=== PATIENT | female | born 1970 | race African-American/Black ===

== ENCOUNTER 2016-12-14 11:32 | Emergency (ER) | payer OTHER ==
[2016-12-14] MEDS ORDERED: Amoxicillin/Potassium Clav 875 MG TAB ONE (11:55)
[2016-12-14] MEDS ORDERED: HYDROcodone/Acetaminophen 10/325 mg Tablet ONE (11:55)
--- NOTE | 2016-12-14 13:13 | PICIS ---
[facility] EMERGENCY RECORD TRIAGE (TueDec 14, 2016 11:41 EPIE) TRIAGE NOTES: Pt reports congestion and small amounts of coughing 2 weeks ago. Pt reports headache for the last 3 days. (TueDec 14, 2016 11:41 EPIE) PATIENT: NAME: Nevin Box, AGE: 46, GENDER: female, : [place] 1970, TIME OF GREET: TueDec 14, 2016 11:33, PREFERRED LANGUAGE: [place] Citizen, ETHNICITY: Not or , ECODE BILLING MAP: [facility], SSN: [id number], Zip Code: [address], KG WEIGHT: [phone], PHONE: , , , PERSON ID: [id number], PCP: Sarah HERNANDEZ ANNA. (TueDec 14, 2016 11:41 EPIE) COMPLAINT: HEADACHE/NASAL CONGESTION. (TueDec 14, 2016 11:41 EPIE) ADMISSION: URGENCY: 3 Urgent, ADMISSION SOURCE: Home, TRANSPORT: CAR, BED: TRIAGE. (TueDec 14, 2016 11:41 EPIE) TRIAGE SCREENING: Patient denies suicidal ideation, Patient denies presence of domestic violence. (11:43 EPIE) TREATMENTS IN PROGRESS: Treatments given Prehospital: none. (11:43 EPIE) PROVIDERS: TRIAGE NURSE: Marianna Ibrahim RN. (TueDec 14, 2016 11:41 EPIE) VITAL SIGNS: Pulse 76, Resp 20, Temp 97.2, (Oral), O2 Sat 97, on Room Air, Time 12/14/2016 11:38. (11:38 EPIE) BP 210/111, Time 12/14/2016 11:42. (11:42 EPIE) PREVIOUS VISIT ALLERGIES: ciprofloxacin. (TueDec 14, 2016 11:41 EPIE) ciprofloxacin. (11:43 EPIE) KNOWN ALLERGIES ciprofloxacin: Reaction: Emesis CURRENT MEDICATIONS (11:42 EPIE) Norvasc: TABLET : Strength - 10 mg : ORAL Patient Dose: 10 mg Oral once a day. labetalol: TABLET : Strength - 100 mg : ORAL Patient Dose: 100 mg Oral 2 times a day. Advair Diskus: BLISTER, WITH INHALATION DEVICE : Strength - 100 mcg-50 mcg/Dose : INHALATION Patient Dose: Unknown. VITAL SIGNS VITAL SIGNS: Pulse: 76, Resp: 20, Temp: 97.2 (Oral), O2 sat: 97 on Room Air, Time: 12/14/2016 11:38. (11:38 EPIE) BP: 210/111, Time: 12/14/2016 11:42. (11:42 EPIE) BP: 167/76, Pulse: 78, Resp: 20 (Non-Labored), Temp: 97.8 (Oral), Pain: 7, O2 sat: 98 on Room Air, Time: 12/14/2016 12:54. (12:54 EPIE) &a-1R&a+25V*p+0X*n5403C*c202B*c15G*c2P*p-0X&a-25V&a+1R Name: Nevin Box : 1970 F46 MedRec: [id number] AcctNum: [id number] Prepared: TueDec 14, 2016 13:08 by Interface Page 1 of 6 pMD [facility] EMERGENCY RECORD NURSING ASSESSMENT: RESPIRATORY /CHEST (12:30 EPIE) CONSTITUTIONAL: Patient arrives ambulatory, Gait steady, History obtained from patient, Patient appears comfortable, Patient cooperative, Patient alert, Oriented to person, place and time, Skin warm, Skin dry, Skin normal in color, Mucous membranes pink, Mucous membranes moist, Patient is well-groomed, Pt reports congestion and small amounts of coughing 2 weeks ago. Pt reports headache for the last 3 days. PAIN: aching pain, headache, on a scale 0-10 patient rates pain as 8. RESPIRATORY/CHEST: Breath sounds clear, Respiratory assessment findings include respiratory effort easy, Respirations regular, Conversing normally, Neck and chest exam findings include trachea midline, Chest expansion equal, Chest movement symmetrical, Associated with cough, non-productive, no associated fever. ENT: Nasal assessment findings include nose normal to inspection, Sinuses normal, Nasal mucosa normal, Congestion, bilaterally, Mouth and throat assessment findings include mouth inspection normal, Uvula normal, Tonsils normal, Mucous membranes pink, and moist, Able to swallow, Speech normal, Associated with headache. NURSING PROCEDURE: NURSE NOTES (12:54 EPIE) NURSES NOTES: Notes: Pt upset and crying due to congestion. ERMD made aware. Pt to be discharged. MEDICATION ADMINISTRATION SUMMARY Drug Name: Augmentin, Dose Ordered: 875 mg, Route: Oral, Status: Given, Time: 12:05 12/14/2016, Drug Name: HYDROcodone-acetaminophen, Dose Ordered: 10/325 tab(s), Route: Oral, Status: Given, Time: 12:05 12/14/2016, Drug Name: hydrALAZINE injection, Dose Ordered: 20 mg, Route: Intramuscular, Status: Given, Time: 12:04 12/14/2016, Detailed record available in Medication Service section. MEDICATION SERVICE Augmentin: Order: Augmentin (amoxicillin trihydrate/potassium clavulanate) - Dose: 875 mg : Oral Ordered by: Bernabe Estrada MD Entered by: Bernabe Estrada MD TueDec 14, 2016 11:50 , Acknowledged by: Marianna Ibrahim RN TueDec 14, 2016 11:51 Documented as given by: Marianna Ibrahim RN TueDec 14, 2016 12:05 Patient, Medication, Dose, Route and Time verified prior to administration. Amount given: 875MG, Site: Medication administered P.O., Correct patient, time, route, dose and medication confirmed prior to administration, Patient advised of actions and side-effects prior to administration, Allergies confirmed and medications reviewed prior to &a-1R&a+25V*p+0X*g6681M*c202B*c15G*c2P*p-0X&a-25V&a+1R Name: Isauro Nevin D : 1970 F46 MedRec: [id number] AcctNum: [id number] Prepared: TueDec 14, 2016 13:08 by Interface Page 2 of 6 pMD [facility] EMERGENCY RECORD administration. hydrALAZINE injection: Order: hydrALAZINE injection (hydralazine HCl) - Dose: 20 mg : Intramuscular Ordered by: Bernabe Estrada MD Entered by: Bernabe Estrada MD TueDec 14, 2016 11:53 , Acknowledged by: Marianna Ibrahim RN TueDec 14, 2016 11:54 Documented as given by: Marianna Ibrahim RN TueDec 14, 2016 12:04 Patient, Medication, Dose, Route and Time verified prior to administration. IM medication, Amount given: 20MG, Medication administered to right deltoid, Correct patient, time, route, dose and medication confirmed prior to administration, Patient advised of actions and side-effects prior to administration, Allergies confirmed and medications reviewed prior to administration. HYDROcodone-acetaminophen: Order: HYDROcodone-acetaminophen (hydrocodone bitartrate/acetaminophen) - Dose: 10/325 tab(s) : Oral Ordered by: Bernabe Estrada MD Entered by: Bernabe Estrada MD [facility] Dec 14, 2016 11:51 , Acknowledged by: Marianna Ibrahim RN Dec 14, 2016 11:51 Documented as given by: Marianna Ibrahim RN Dec 14, 2016 12:05 Patient, Medication, Dose, Route and Time verified prior to administration. Amount given: 10/325MG, Site: Medication administered P.O., Correct patient, time, route, dose and medication confirmed prior to administration, Patient advised of actions and side-effects prior to administration, Allergies confirmed and medications reviewed prior to administration. HPI URI (12:57 AGRE) CHIEF COMPLAINT: Patient presents for evaluation of sore throat, Patient presents for evaluation of nasal congestion, Patient presents for evaluation of cough. HISTORIAN: History provided by patient, NASAL CONGESTION WITH COUGH FOR 2 WEEKS, WORST X 3 DAYS. NO FEVER OR CHILLS. HAS FRONTAL CLEMENTS SIMILAR TO HER USUAL SINUS CLEMENTS'S. HAS GREEN NASAL DRAINAGE FOR 3 DAYS. NON-PRODUCTIVE COUGH. NO OTHER SYMPTOMS. TAKING ALKASELTAER PLUS AND ZYRTEC AND IT IS NOT HELPING. HX OF SINUSITIS. LOCATION: Symptoms are localized, most severe to BEHIND EYES AND FORE HEAD. QUALITY: Pain is dull in nature, described as aching, described as throbbing. SEVERITY: Maximum severity of symptoms moderate, Currently symptoms are moderate. TIME COURSE: Gradual onset of symptoms, Symptoms are worsening. ASSOCIATED WITH: No associated chest pain, No associated chills, No associated fever, Associated with headache, No associated neck pain, No associated shortness of breath, Denies any other complaints. EXACERBATED BY: Patient's condition exacerbated by nothing. RELIEVED BY: Patient's condition relieved &a-1R&a+25V*p+0X*g8057K*c202B*c15G*c2P*p-0X&a-25V&a+1R Name: Nevin Box : 1970 F46 MedRec: [id number] AcctNum: [id number] Prepared: TueDec 14, 2016 13:08 by Interface Page 3 of 6 pMD [facility] EMERGENCY RECORD by nothing. ROS (12:59 AGRE) CONSTITUTIONAL: Historian denies chills, denies fever, denies lethargy, denies malaise. EYES: Historian denies eye pain, denies eye redness. ENT: Historian denies otalgia, reports rhinorrhea, reports sinus pain, reports sore throat. CARDIOVASCULAR: Historian denies chest pain, denies dyspnea on exertion. RESPIRATORY: Historian reports cough, denies shortness of breath, denies sputum, denies stridor, denies wheezing. GI: Historian denies abdominal pain, denies nausea, denies vomiting. MUSCULOSKELETAL: Historian denies back pain, denies neck pain. SKIN: Negative skin review of systems, Historian denies skin changes, denies skin lesions. NEUROLOGIC: Historian reports headache, denies mental status changes. PSYCHIATRIC: Negative psychiatric review of systems, Historian denies anxiety. PAST MEDICAL HISTORY (11:43 EPIE) MEDICAL HISTORY: Flu vaccine not up to date, Tetanus immunization up to date, Pneumococcal vaccine not up to date, Past medical history includes pulmonary disease, asthma, Past medical history includes history of obesity, Past medical history includes pulmonary disease, pneumonia, , Past medical history includes history of hypertension, GASTRIC ULCERS, VIRAL MENINGITIS (06/09/13). FEMALE SURGICAL HISTORY: Surgical history of hernia repair, Surgical history of tubal ligation. PSYCHIATRIC HISTORY: No previous psychiatric history. SOCIAL HISTORY: Patient has no smoking history, Patient drinks socially, Patient denies drug use. PHYSICAL EXAM (13:01 AGRE) CONSTITUTIONAL: Vital Signs Reviewed, Patient afebrile, Patient appears non toxic, Patient appears pain free, Patient alert and oriented to person, place and time, Nursing notes reviewed. HEAD: Head exam included findings of head atraumatic, normocephalic. EYES: Eye exam included findings of eyelids normal to inspection, Pupils equally round and reactive to light, Extraocular muscles intact, Conjunctiva normal, Sclera normal, no periorbital ecchymosis, no periorbital edema, no periorbital erythema. ENT: Ear exam normal, tympanic membranes normal, Nose exam included findings of, turbinate mucosa discharge, ERYTHEMA AND EDEMA OF TURBINATES, Pharynx exam normal, Uvula exam normal, Tonsil exam normal, Mouth exam normal, Sinus &a-1R&a+25V*p+0X*f3475F*c202B*c15G*c2P*p-0X&a-25V&a+1R Name: Nevin Box : 1970 F46 MedRec: [id number] AcctNum: [id number] Prepared: TueDec 14, 2016 13:08 by Interface Page 4 of 6 pMD [facility] EMERGENCY RECORD exam included findings of frontal sinuses with, tenderness bilaterally, Maxillary sinuses with, tenderness bilaterally. NECK: Neck exam normal, Neck exam included findings of normal range of motion, Thyroid normal, no meningeal signs, no cervical adenopathy, no tenderness. RESPIRATORY CHEST: Respiratory and chest exam normal, Respiratory exam included findings of no respiratory distress, Breath sounds clear, No wheezing, No rales, No rhonchi, Breath sounds not diminished. CARDIOVASCULAR: Cardiovascular assessment normal, Cardiovascular exam included findings of heart rate regular rate and rhythm, Heart sounds normal, normal S1, normal S2, no murmurs, no rub, no gallop. ABDOMEN FEMALE: Abdominal exam normal, Abdominal exam included findings of abdomen nontender, Bowel sounds normal, Liver normal, Spleen normal, no distension, no mass, no pulsatile masses. BACK: Back exam included findings of normal inspection, range of motion normal. UPPER EXTREMITY: Upper extremity exam included findings of inspection normal, Range of motion normal. LOWER EXTREMITY: Lower extremity exam included findings of inspection normal, Range of motion normal. NEURO: Neuro exam normal, Neuro exam findings include patient oriented to person, place and time, Speech normal, Memory normal, Cranial nerves intact, no focal motor deficits. SKIN: Skin exam included findings of skin warm, dry, and normal in color. PSYCHIATRIC: Psychiatric exam normal, Normal affect. EVENTS TRANSFER: Triage to Emergency Triage. (11:41 EPIE) Emergency Triage to Emergency Room -03. (11:42 EPIE) Removed from Emergency Emergency Room -03. (13:04 EPIE) O2SAT INTERPRETATION (13:02 [facility]) O2SAT: Continuous pulse oximetry, Oxygen saturation 98%, on room air, Oxygen saturation interpretation: Normal, No intervention required. DOCTOR NOTES (13:02 AGRE) RE-EVALUATION: Routine re-evaluation, after administration of analgesics, The patient's condition has improved. TEXT: BLOOD PRESSURE IMPROVED WITH HYDRALAZINE AND PAIN BETTER WITH NORCO. SHE WAS GIVEN ANTIBIOTICS AND DISCUSSED WITH HER THAT SHE HAS TO STOP THE ZYRTEC AND ALKASELTZER PLUS BECAUSE OF HER BLOOD PRESSURE. DISCUSSED PUSHING FLUIDS, MUCINEX, MONITORING HER BLOOD PRESSURE AT HOME. MAY TAKE A NYQUIL AT BEDTIME ONLY IF CONGESTED AND UNABLE TO BREATH THRU HER NOSE BUT NO OTHER TIME AND THAT THESE MEDS CAUSE ELEVATION OF THE BP. ADVISED HER OF THE RISK OF HER BLOOD PRESSURE BEING ELEVATED. ADVISED STARTING ANTIBIOTICS, &a-1R&a+25V*p+0X*n0004X*c202B*c15G*c2P*p-0X&a-25V&a+1R Name: Nevin Box : 1970 F46 MedRec: [id number] AcctNum: [id number] Prepared: TueDec 14, 2016 13:08 by Interface Page 5 of 6 pMD [facility] EMERGENCY RECORD MANAGING HER PAIN, NEED FOR CLOSE FOLLOW UP. SHE WAS CRYING BECAUSE OF HER NASAL CONGESTION. EXPRESSED UNDERSTANDING AND AGREEMENT WITH THE PLAN OF CARE DISCUSSED. PATIENT STATUS: Patient has improved since arrival to emergency department. PATIENT PLAN: The patient will be discharged. DATA REVIEWED: Discussed with family. PROBLEM LIST No recorded problems DIAGNOSIS (12:09 AGRE) FINAL: PRIMARY: ACUTE SINUSITIS UNSPECIFIED, ADDITIONAL: Hypertension, SINUS HEADACHE. DISPOSITION PATIENT: Disposition Type: Discharge, Disposition: *Discharge Home, Condition: Improved. (12:09 AGRE) Patient left the department. (13:04 EPIE) INSTRUCTION (12:11 AGRE) DISCHARGE: SINUSITIS, ABX TX, SINUS HEADACHE, HYPERTENSION, ESTABLISHED, OUT OF CONTROL. FOLLOWUP: Sarah HERNANDEZ, [place], [facility], [address], [place] [address], . SPECIAL: STOP TAKING THE ZYRTEC AND ALKASELTZER COLD PLUS MEDICATIONS. CHECK YOUR BLOOD PRESSURE EVERY 8 HOURS WHILE RESTING AND CALL YOUR PHYSICIAN IF IT IS REMAINING ELEVATED. TAKE TYLENOL 1000 MG EVERY 6 HOURS FOR PAIN AND THE ULTRAM NEEDED FOR SEVERE PAIN. RETURN TO THE EMERGENCY DEPARTMENT IF WORSENING OR IF NEW SYMPTOMS DEVELOP. PRESCRIPTION (12:09 [facility]) Augmentin: TABLET : 875 mg-125 mg : ORAL : Quantity: 1 Unit: tab(s) Route: ORAL Schedule: every 12 hours Dispense: 20 Unit: tab(s) May substitute. Refills: No Refills . NOTES: No Refills. Ultram: TABLET : 50 mg : ORAL : Quantity: 1-2 Unit: tab(s) Route: ORAL Schedule: every 6 hours PRN Dispense: 20 May substitute. Refills: No Refills . NOTES: ^s=No Refills No Refills. ADMIN (13:06 [facility]) DIGITAL SIGNATURE: MD Estrada Andrea. [place]: AGRE=MD Estrada Andrea EPIE=HAFSA Ibrahim, Marianna &a-1R&a+25V*p+0X*q4357V*c202B*c15G*c2P*p-0X&a-25V&a+1R Name: Nevin Box : 1970 F46 MedRec: [id number] AcctNum: [id number] Prepared: TueDec 14, 2016 13:08 by Interface Page 6 of 6 pMD MTDD
== END 2016-12-14 13:00 | disposition home or self-care (01) ==
LOC: NAV ERS 11:32
DX: J01.90 Acute sinusitis, unspecified (principal); I10 Essential (primary) hypertension; J45.909 Unspecified asthma, uncomplicated; Z79.899 Other long term (current) drug therapy
CPT/HCPCS: J0360

== ENCOUNTER 2016-12-14 14:17 | Emergency (ER) | payer OTHER ==
[2016-12-14] MEDS ORDERED: Lorazepam 2 MG/ML VIAL ONE (14:43)
[2016-12-14] MEDS ORDERED: Ketorolac Tromethamine 30 MG/ML VIAL ONE (14:44)
[2016-12-14] MEDS ORDERED: Sodium Chloride 0.9% 1,000 ML ONE ×2 (14:44→15:55)
[2016-12-14] MEDS ORDERED: Ondansetron HCl/PF 4 MG/2 ML Vial ONE ×2 (14:44→18:25)
--- NOTE | 2016-12-14 15:12 | CT ---
NONCONTRAST CT BRAIN INDICATIONS: History of headache. COMPARISON: Prior exam dated 06/10/2013. FINDINGS: No acute infarct, hemorrhage, or hydrocephalus is present. The septum pellucidum and third ventricl e are midline. The skull and extracranial soft tissues appear within normal limits. IMPRESSION: No acute intracranial abnormality. POS: [facility]
[2016-12-14 15:16] LABS: #Basophils 0.1 thou/uL (0.0-0.2); #Eosinphils 0.4 thou/uL (0.0-0.7); #Lymphocytes 1.9 thou/uL (1.20-3.40); #Monocytes 0.4 thou/uL (0.11-0.59); #Neutrophils 3.3 thou/uL (1.40-6.50); %Basophils 0.9 % (0.0-1.0); %Eosinophils 7.5 % (0.0-10.0); Mean Platelet Volume 6.6 fL (7.4-10.4); Red Blood Cell (RBC) Count 4.57 mill/uL (4.20-5.40)
[2016-12-14 15:31] LABS: ALT (SGPT) 13 U/L (0-55); AST (SGOT) 19 U/L (5-34); Alkaline Phosphatase 80 U/L (40-150); Anion Gap 14 mmol/L (10-20); BUN (Urea Nitrogen) 12 mg/dL (7.0-18.7); Bilirubin, Total 0.6 mg/dL (0.2-1.2); Calc. Creatinine Clearance 0 mL/min (70-130); Calcium 8.8 mg/dL (7.8-10.44); Carbon Dioxide 23 mmol/L (22-29); Chloride 105 mmol/L (98-107); Estimated GFR-MDRD Greater than 90; Globulin 3.2 g/dL (2.4-3.5); Protein, Total 7.1 g/dL (6.0-8.3)
[2016-12-14 15:33] LABS: Troponin I 0.036 ng/mL (< 0.028)
--- NOTE | 2016-12-14 15:49 | RAD ---
PORTABLE AP CHEST X-RAY 12/14/16 HISTORY: Nausea and vomiting. COMPARISON: 07/24/15 FINDINGS: The cardiac silhouette is magnified by projection but does appear mildly enlarged. Pulmonary vascula ture is within normal limits for the portable technique of this study. The lungs are clear. Limited evaluation of the chest due to underpenetrated technique, but no gross abnormality is seen. There is suboptimal evaluation of the medial left lung base. IMPRESSION: 1. No acute cardiopulmonary process. 2. Suboptimal evaluation left lung base related to technique of the study and enlargement of th e cardiac silhouette. POS: [facility]
[2016-12-14] MEDS ORDERED: Potassium Chloride 20 MEQ TAB ONE (15:50)
[2016-12-14] MEDS ORDERED: HYDROcodone/Acetaminophen 10/325 mg Tablet ONE (16:32)
[2016-12-14 16:51] LABS: Methadone Not Detected (NotDetected); Methamphetamine Not Detected (NotDetected)
[2016-12-14 17:44] LABS: Troponin I 0.036 ng/mL (< 0.028)
[2016-12-14] MEDS ORDERED: Meclizine HCl 25 MG TAB ONE (18:25)
--- NOTE | 2016-12-14 19:13 | PICIS ---
[facility] EMERGENCY RECORD TRIAGE (TueDec 14, 2016 14:23 JPAR) TRIAGE NOTES: Panic Attack. (TueDec 14, 2016 14:23 JPAR) PATIENT: NAME: Nevin Box, AGE: 46, GENDER: female, : Tue1970, TIME OF GREET: TueDec 14, 2016 14:17, PREFERRED LANGUAGE: Nicaraguan, ETHNICITY: Not or , ECODE BILLING MAP: [facility], SSN: [id number], Zip Code: [address], KG WEIGHT: 136.53, PHONE: , , , PERSON ID: [id number], PCP: Sarah HERNANDEZ ANNA. (TueDec 14, 2016 14:23 JPAR) COMPLAINT: DIZZINESS,ANXIETY. (TueDec 14, 2016 14:23 JPAR) ADMISSION: URGENCY: 4 Non Urgent, ADMISSION SOURCE: Home, TRANSPORT: CAR, BED: TRIAGE. (TueDec 14, 2016 14:23 JPAR) ASSESSMENT: Assessment: Anxiety/ Panic attack, Symptoms began 30 minutes ago, Symptoms began 30 min ago. (14:26 JPAR) PAIN: Patient complains of pain described as, aching, on a scale 0-10 patient rates pain as 10. (14:26 JPAR) SIRS SCORING: Heart Rate 55-109 (0), Temp range 96.8-101.1 (0), respiratory rate 12-24 (0), Mental Status altered: no (0), Infection or Suspected Infection: No. (14:26 JPAR) TRIAGE SCREENING: Patient denies suicidal ideation, Patient denies presence of domestic violence. (14:26 JPAR) PROVIDERS: TRIAGE NURSE: Steven Vasquez RN. (TueDec 14, 2016 14:23 JPAR) VITAL SIGNS: Resp 30, Pain 10, Time 12/14/2016 14:22. (14:22 JPAR) BP 203/110, Pulse 101, Resp 30, Temp 97.2, (Oral), Pain 10, O2 Sat 98, Time 12/14/2016 14:23. (14:23 JPAR) PREVIOUS VISIT ALLERGIES: ciprofloxacin. (TueDec 14, 2016 14:23 JPAR) ciprofloxacin. (14:26 JPAR) KNOWN ALLERGIES ciprofloxacin: Reaction: Emesis ciprofloxacin HCl (Unconfirmed): Reaction: Emesis CURRENT MEDICATIONS (14:23 JPAR) Norvasc: TABLET : Strength - 10 mg : ORAL Patient Dose: 10 mg Oral once a day. labetalol: TABLET : Strength - 100 mg : ORAL Patient Dose: 100 mg Oral 2 times a day. Advair Diskus: BLISTER, WITH INHALATION DEVICE : Strength - 100 mcg-50 mcg/Dose : INHALATION Patient Dose: Unknown. Augmentin: TABLET : Strength - 875 mg-125 mg : ORAL Patient Dose: 1 tab(s) Oral every 12 hours. &a-1R&a+25V*p+0X*f4350T*c202B*c15G*c2P*p-0X&a-25V&a+1R Name: Nevin Box : 1970 F46 MedRec: [id number] AcctNum: [id number] Prepared: TueDec 14, 2016 19:34 by Interface Page 1 of 17 pMD [facility] EMERGENCY RECORD Ultram: TABLET : Strength - 50 mg : ORAL Patient Dose: 1-2 tab(s) Oral every 6 hours PRN. VITAL SIGNS VITAL SIGNS: Resp: 30, Pain: 10, Time: 12/14/2016 14:22. (14:22 JPAR) BP: 203/110, Pulse: 101, Resp: 30, Temp: 97.2 (Oral), Pain: 10, O2 sat: 98, Time: 12/14/2016 14:23. (14:23 JPAR) BP: 172/94, Pulse: 88, Resp: 20, O2 sat: 97 on Room Air, Time: 12/14/2016 15:07. (15:07 JPAR) BP: 153/81, Pulse: 82, Resp: 22, O2 sat: 95 on Room Air, Time: 12/14/2016 15:38. (15:38 JPAR) BP: 158/87, Pulse: 81, Resp: 20, Pain: 7, Time: 12/14/2016 16:15. (16:15 JPAR) NURSING ASSESSMENT: PSYCH/SOCIAL (14:23 JPAR) CONSTITUTIONAL: Patient arrives, via hospital wheelchair, Gait steady, History obtained from patient, Patient appears, anxious, obese, restless, Patient cooperative, Patient alert, Oriented to person, place and time, Skin warm, Skin dry, Skin normal in color, Mucous membranes pink, Mucous membranes moist, Patient complains of Anxiety/ Panic Attack. PSYCH/SOCIAL: Psychiatric/social assessment findings include affect, anxious, manic, no complaint of visual hallucinations, no complaint of auditory hallucinations, Tactile hallucinations present, Pt states she feels like bugs are crawling all over her, no suicidal ideations, no homicidal ideations, no reported overdose. SUICIDE RISK ASSESSMENT TOOL: Suicide Risk Assessment findings: Mental State (Low risk):, none or mild depression, sadness, no psychotic symptoms, none or mild anger, hostility, Suicide Attempt or Suicidal Thoughts (Low risk):, no suicidal thoughts, Substance Disorder (Low risk):, no use of substances, infrequent use of substances, Corroborative History (Low risk):, able to access information, able to verify information and account of events of person at risk, Strengths and Support (Low risk):, Reflective Practice (Low risk):, high assessment confidence, low changeability, established good rapport, good engagement with patient, Suicide Risk: None, no evidence of current risk to the person, no thought of suicide or history of attempts, good social support network, This person's risk level in not highly changeable, No, there are no factors that indicate a level of uncertainty in this risk assessment, indicating an assessment confidence. SAFETY: Side rails up, Cart/Stretcher in lowest position, Family at bedside, Call light within reach, Hospital ID band on. NURSING PROCEDURE: SLEEVE MACHINE TENDER (14:41 EPIE) SLEEVE MACHINE TENDER: Patient placed on manager cardiac cath, Patient placed on non-invasive blood pressure monitor, with disposable blood &a-1R&a+25V*p+0X*w5804V*c202B*c15G*c2P*p-0X&a-25V&a+1R Name: Nevin Box : 1970 F46 MedRec: [id number] AcctNum: [id number] Prepared: TueDec 14, 2016 19:34 by Interface Page 2 of 17 D [facility] EMERGENCY RECORD pressure cuff applied, Patient placed on continuous pulse oximetry, Adult/pediatric oxisensor applied. FOLLOW-UP: After procedure, alarms set and on, After procedure, patient tolerating monitoring. NURSING PROCEDURE: EKG CHART (14:36 EPIE) EK lead EKG performed on the left chest, done by Marianna PEREYRA, first EKG. FOLLOW-UP: After procedure, EKG for interpretation given to Dr. Sean GARLAND. NURSING PROCEDURE: IV (14:57 JPAR) PATIENT IDENITIFIER: Patient actively involved in identification process, Patient's identity verified by patient stating name, Patient's identity verified by patient stating date, Patient's identity verified by hospital ID bracelet, Patient's identity verified by family member. IV SITE 1: IV therapy indicated for hydration, IV therapy indicated for medication administration, IV established, to the left hand, using a 22 gauge catheter, in one attempt, IV site prepped with clorohexaphine, Saline lock established, Flushed with normal saline (mls): 10, Labs drawn at time of placement, labeled in the presence of the patient and sent to lab. SAFETY: Side rails up, Cart/Stretcher in lowest position, Family at bedside, Call light within reach, Hospital ID band on. NURSING PROCEDURE: LAB DRAW (17:05 JPAR) PATIENT IDENTIFIER: Patient actively involved in identification process, Patient's identity verified by patient stating name, Patient's identity verified by patient stating date, Patient's identity verified by hospital ID bracelet, Patient's identity verified by family member. LAB DRAW: Lab draw indicated for inability to obtain labs from IV site, Lab draw indicated for obtaining specimens for evaluation, Lab draw indicated for Repeat Trop, Subsequent lab draw performed, by venipuncture, from right hand, in one attempt, Lab specimens labeled in the presence of the patient and sent to lab. FOLLOW-UP: After procedure, dressing applied to site, After procedure, no swelling at site, After procedure, no active bleeding from site. SAFETY: Side rails up, Cart/Stretcher in lowest position, Family at bedside, Call light within reach, Hospital ID band on. NURSING PROCEDURE: NURSE NOTES NURSES NOTES: Patient in no apparent distress, Warm blanket given to patient, Patient is awaiting disposition, Patient re-positioned to semi-Strong's position, Notes: pt resting in no distress. (15:38 JPAR) Patient assisted to bathroom with steady gait, Patient in no apparent distress, Patient is awaiting disposition. (16:57 JPAR) &a-1R&a+25V*p+0X*f9643F*c202B*c15G*c2P*p-0X&a-25V&a+1R Name: Nevin Box : 1970 F46 MedRec: [id number] AcctNum: [id number] Prepared: TueDec 14, 2016 19:34 by Interface Page 3 of 17 pMD [facility] EMERGENCY RECORD NURSING PROCEDURE: TRANSFER (18:56 JPAR) TRANSFER: Reason for transfer need for specialized care, Diagnosis: Vertigo, Elevated Troponin, HTN, Accepting institution: [facility], Accepting physician: Germania, Referring physician: Sean, Transported by urgent ambulance, accompanied by emergency medical services personnel, Report called to receiving facility, Pam, Provided opportunity to answer questions. BELONGINGS: Belongings and valuables with patient at time of discharge include:, Belongings remain with patient, Valuables remain with patient. EQUIPMENT WITH PATIENT: Equipment with patient at time of transfer manager cardiac cath, Saline lock intact and patent at time of transfer. SAFETY: Side rails up, Cart/Stretcher in lowest position, Call light within reach, Hospital ID band on. NURSING PROCEDURE: TRANSPORT TO TESTS (14:39 CCRI) TRANSPORT TO TESTS: Patient transported to CT scan, via cart, Accompanied by x-ray motion study technician. ORDER DETAILS Order Name: SLEEVE MACHINE TENDER ED, Status: Done, Time: 14:40 12/14/2016, User: ALON, - Ordered for: MD Estrada Andrea, - Entered by: MD Estrada Andrea - Bravo Dec 14, 2016 14:29, - Quantity: 1, Order Name: Cardiac Profile w/CKMB & Troponin - I, Status: Active, Time: 14:29 12/14/2016, User: ELLIOTT, - Ordered for: MD Estrada Andrea, - Entered by: MD Estrada Andrea - Tue Dec 14, 2016 14:29, - Quantity: 1, Order Name: CBC with Differential, Status: Active, Time: 14:29 12/14/2016, User: AGRE, - Ordered for: MD Estrada Andrea, - Entered by: MD Estrada Andrea - TueDec 14, 2016 14:29, - Quantity: 1, Order Name: Comprehensive Metabolic Panel, Status: Active, Time: 14:29 12/14/2016, User: ELLIOTT, - Ordered for: MD Estrada Andrea, - Entered by: MD Estrada Andrea - regla Dec 14, 2016 14:29, - Quantity: 1, Order Name: CT Brain WO Con, Status: Active, Time: 14:29 12/14/2016, User: ELLIOTT, - Ordered for: MD Estrada Andrea, - Entered by: MD Estrada Andrea - TueDec 14, 2016 14:29, - Quantity: 1, Order Name: Drug Screen, Urine, Status: Active, Time: 14:29 12/14/2016, User: ELLIOTT, &a-1R&a+25V*p+0X*z7353C*c202B*c15G*c2P*p-0X&a-25V&a+1R Name: Nevin Box : 1970 F46 MedRec: [id number] AcctNum: [id number] Prepared: TueDec 14, 2016 19:34 by Interface Page 4 of 17 [facility] EMERGENCY RECORD - Ordered for: MD Estrada Andrea, - Entered by: MD Estrada Andrea - regla Dec 14, 2016 14:29, - Quantity: 1, Order Name: EKG 12 Lead in Emergency Room, Status: Active, Time: 14:29 12/14/2016, User: ELLIOTT, - Ordered for: MD Estrada Andrea, - Entered by: MD Estrada Andrea - regla Dec 14, 2016 14:29, - Quantity: 1, Order Name: Test, Urine (BHCG), Status: Active, Time: 14:29 12/14/2016, User: ELLIOTT, - Ordered for: MD Estrada Andrea, - Entered by: MD Estrada Andrea - regla Dec 14, 2016 14:29, - Quantity: 1, Order Name: SALINE LOCK, Status: Done, Time: 14:40 12/14/2016, User: ALON, - Ordered for: MD Estrada Andrea, - Entered by: MD Estrada Andrea - Tue Dec 14, 2016 14:29, - Quantity: 1, Order Name: Troponin - I, Status: Active, Time: 16:57 12/14/2016, User: ELLIOTT, - Ordered for: MD Estrada Andrea, - Entered by: MD Estrada Andrea - Tue Dec 14, 2016 16:57, - Quantity: 1, Order Name: XR Chest 1 View Portable, Status: Active, Time: 15:16 12/14/2016, User: ELLIOTT, - Ordered for: MD Estrada Andrea, - Entered by: MD Estrada Andrea - Tue Dec 14, 2016 15:16, - Quantity: 1. MEDICATION ADMINISTRATION SUMMARY Drug Name: Zofran intravenous, Dose Ordered: 4 mg, Route: IV Push, Status: Given, Time: 18:29 12/14/2016, Drug Name: Antivert, Dose Ordered: 25 mg, Route: Oral, Status: Given, Time: 18:29 12/14/2016, Drug Name: HYDROcodone-acetaminophen, Dose Ordered: 10/325 tab(s), Route: Oral, Status: Given, Time: 16:33 12/14/2016, Drug Name: sodium chloride 0.9 % intravenous, Dose Ordered: 1000 mL, Route: IV Fluid Infusion, Status: Given, Time: 16:08 12/14/2016, Drug Name: potassium chloride oral, Dose Ordered: 20 mEq, Route: Oral, Status: Given, Time: 15:53 12/14/2016, Drug Name: aspirin oral, Dose Ordered: 324 mg, Route: Oral, Status: Given, Time: 15:52 12/14/2016, Drug Name: Ativan injection, Dose Ordered: 1 mg, Route: IV Push, Status: Given, Time: 15:02 12/14/2016, Drug Name: ketorolac injection, Dose Ordered: 30 mg, Route: IV Push, Status: Given, Time: 15:01 12/14/2016, Drug Name: sodium chloride 0.9 % intravenous, Dose Ordered: 1000 mL, Route: IV Fluid Infusion, Status: Given, Time: 15:00 12/14/2016, Drug Name: ondansetron HCl intravenous, Dose Ordered: 4 mg, Route: IV &a-1R&a+25V*p+0X*g9664T*c202B*c15G*c2P*p-0X&a-25V&a+1R Name: Nevin Box : 1970 F46 MedRec: [id number] AcctNum: [id number] Prepared: TueDec 14, 2016 19:34 by Interface Page 5 of 17 pMD [facility] EMERGENCY RECORD Push, Status: Given, Time: 15:00 12/14/2016, Detailed record available in Medication Service section. MEDICATION SERVICE Antivert: Order: Antivert (meclizine HCl) - Dose: 25 mg : Oral Ordered by: Bernabe Estrada MD Entered by: Bernabe Estrada MD TueDec 14, 2016 17:58 , Acknowledged by: Steven Vasquez RN TueDec 14, 2016 18:25 Documented as given by: Steven Vasquez RN TueDec 14, 2016 18:29 Patient, Medication, Dose, Route and Time verified prior to administration. Patient appears Awake and alert- acceptable, Correct patient, time, route, dose and medication confirmed prior to administration, Patient advised of actions and side-effects prior to administration, Allergies confirmed and medications reviewed prior to administration, Patient in position of comfort, Side rails up, Cart in lowest position, Family at bedside, Call light in reach. aspirin oral: Order: aspirin oral (aspirin) - Dose: 324 mg : Oral POTENTIAL CONTRAINDICATED INTERACTION: ketorolac injection (ketorolac tromethamine) - No alternative available Ordered by: Bernabe Estrada MD Entered by: Bernabe Estrada MD TueDec 14, 2016 15:38 Documented as given by: Steven Vasquez RN TueDec 14, 2016 15:52 Patient, Medication, Dose, Route and Time verified prior to administration. Patient appears Awake and alert- acceptable, Correct patient, time, route, dose and medication confirmed prior to administration, Patient advised of actions and side-effects prior to administration, Allergies confirmed and medications reviewed prior to administration, Patient in position of comfort, Side rails up, Cart in lowest position, Family at bedside, Call light in reach. Ativan injection: Order: Ativan injection (lorazepam) - Dose: 1 mg : IV Push Ordered by: Bernabe Estrada MD Entered by: Bernabe Estrada MD TueDec 14, 2016 14:30 , Acknowledged by: Steven Vasquez RN TueDec 14, 2016 14:42 Documented as given by: Steven Vasquez RN TueDec 14, 2016 15:02 Patient, Medication, Dose, Route and Time verified prior to administration. IV SITE #1 IVP, initial medication, Slowly, Awake and alert- acceptable, Connections checked prior to administration, Line traced prior to administration, Catheter placement confirmed via flush prior to administration, IV site without signs or symptoms of infiltration during medication administration, No swelling during administration, No drainage during administration, IV flushed after administration, Correct patient, time, route, dose and medication confirmed prior to administration, Patient advised of actions and side-effects prior to administration, Allergies confirmed and medications reviewed prior to &a-1R&a+25V*p+0X*f8515D*c202B*c15G*c2P*p-0X&a-25V&a+1R Name: Nevin Box : 1970 F46 MedRec: [id number] AcctNum: [id number] Prepared: TueDec 14, 2016 19:34 by Interface Page 6 of 17 pMD [facility] EMERGENCY RECORD administration, Patient in position of comfort, Side rails up, Cart in lowest position, Family at bedside, Call light in reach. : Follow Up : Response assessment performed, No signs or symptoms of allergic reaction noted, Decreased symptoms, Decreased heart rate, Decreased respiratory rate, Decreased respiratory effort, Site inspection shows, No swelling at administration site, No drainage at administration site, No bleeding at site, No bruising noted at site, _IV SITE #1:_, Advised not to ambulate without assistance, Patient in position of comfort, Side rails up, Cart in lowest position, Family at bedside, Call light in reach. (15:30 JPAR) HYDROcodone-acetaminophen: Order: HYDROcodone-acetaminophen (hydrocodone bitartrate/acetaminophen) - Dose: 10/325 tab(s) : Oral Ordered by: Bernabe Estrada MD Entered by: Bernabe Estrada MD TueDec 14, 2016 16:19 , Acknowledged by: Steven Vasquez RN TueDec 14, 2016 16:31 Documented as given by: Steven Vasquez RN TueDec 14, 2016 16:33 Patient, Medication, Dose, Route and Time verified prior to administration. Patient appears Awake and alert- acceptable, Correct patient, time, route, dose and medication confirmed prior to administration, Patient advised of actions and side-effects prior to administration, Allergies confirmed and medications reviewed prior to administration, Patient in position of comfort, Side rails up, Cart in lowest position, Family at bedside, Call light in reach. ketorolac injection: Order: ketorolac injection (ketorolac tromethamine) - Dose: 30 mg : IV Push Ordered by: Bernabe Estrada MD Entered by: Bernabe Estrada MD TueDec 14, 2016 14:29 , Acknowledged by: Steven Vasquez RN TueDec 14, 2016 14:42 Documented as given by: Steven Vasquez RN TueDec 14, 2016 15:01 Patient, Medication, Dose, Route and Time verified prior to administration. IV SITE #1 IVP, initial medication, Slowly, Awake and alert- acceptable, Connections checked prior to administration, Line traced prior to administration, Catheter placement confirmed via flush prior to administration, IV site without signs or symptoms of infiltration during medication administration, No swelling during administration, No drainage during administration, IV flushed after administration, Correct patient, time, route, dose and medication confirmed prior to administration, Patient advised of actions and side-effects prior to administration, Allergies confirmed and medications reviewed prior to administration, Patient in position of comfort, Side rails up, Cart in lowest position, Family at bedside, Call light in reach. : Follow Up : Response assessment performed, No signs or symptoms of allergic reaction noted, Decreased pain, Decreased symptoms, Decreased blood pressure, Decreased heart rate, Site inspection shows, No swelling at administration site, No drainage at administration site, No bleeding &a-1R&a+25V*p+0X*u5062M*c202B*c15G*c2P*p-0X&a-25V&a+1R Name: Peckkatya Wiley : 1970 F46 MedRec: [id number] AcctNum: [id number] Prepared: TueDec 14, 2016 19:34 by Interface Page 7 of 17 pMD [facility] EMERGENCY RECORD at site, No bruising noted at site, _IV SITE #1:_, Advised not to ambulate without assistance, Patient in position of comfort, Side rails up, Cart in lowest position, Family at bedside, Call light in reach. (15:30 JPAR) ondansetron HCl intravenous: Order: ondansetron HCl intravenous (ondansetron HCl) - Dose: 4 mg : IV Push Ordered by: Bernabe Estrada MD Entered by: Bernabe Estrada MD TueDec 14, 2016 14:29 , Acknowledged by: Steven Vasquez RN TueDec 14, 2016 14:42 Documented as given by: Steven Vasquez RN TueDec 14, 2016 15:00 Patient, Medication, Dose, Route and Time verified prior to administration. IV SITE #1 IVP, initial medication, Slowly, Awake and alert- acceptable, Connections checked prior to administration, Line traced prior to administration, Catheter placement confirmed via flush prior to administration, IV site without signs or symptoms of infiltration during medication administration, No swelling during administration, No drainage during administration, IV flushed after administration, Correct patient, time, route, dose and medication confirmed prior to administration, Patient advised of actions and side-effects prior to administration, Allergies confirmed and medications reviewed prior to administration, Patient in position of comfort, Side rails up, Cart in lowest position, Family at bedside, Call light in reach. : Follow Up : Response assessment performed, No signs or symptoms of allergic reaction noted, Decreased pain, Decreased symptoms, Decreased vomiting, Decreased nausea, Site inspection shows, No swelling at administration site, No drainage at administration site, No bleeding at site, No bruising noted at site, _IV SITE #1:_, Advised not to ambulate without assistance, Patient in position of comfort, Side rails up, Cart in lowest position, Family at bedside, Call light in reach. (15:30 JPAR) potassium chloride oral: Order: potassium chloride oral (potassium chloride) - Dose: 20 mEq : Oral Ordered by: Bernabe Estrada MD Entered by: Bernabe Estrada MD TueDec 14, 2016 15:45 Documented as given by: Steven Vasquez RN TueDec 14, 2016 15:53 Patient, Medication, Dose, Route and Time verified prior to administration. Patient appears Awake and alert- acceptable, Correct patient, time, route, dose and medication confirmed prior to administration, Patient advised of actions and side-effects prior to administration, Allergies confirmed and medications reviewed prior to administration, Patient in position of comfort, Side rails up, Cart in lowest position, Family at bedside, Call light in reach. sodium chloride 0.9 % intravenous: Order: sodium chloride 0.9 % intravenous (0.9 % sodium chloride) - Dose: 1000 mL : IV Fluid Infusion Ordered by: Bernabe Estrada MD Entered by: Bernabe Estrada MD TueDec 14, 2016 14:29 , &a-1R&a+25V*p+0X*l5767C*c202B*c15G*c2P*p-0X&a-25V&a+1R Name: Nevin Box : 1970 F46 MedRec: [id number] AcctNum: [id number] Prepared: TueDec 14, 2016 19:34 by Interface Page 8 of 17 pMD [facility] EMERGENCY RECORD Acknowledged by: Steven Vasquez RN TueDec 14, 2016 14:42 Documented as given by: Steven Vasquez RN TueDec 14, 2016 15:00 Patient, Medication, Dose, Route and Time verified prior to administration. IV SITE #1 IV fluids established for hydration, IV SITE #1 into left hand, IV SITE #1 1st bag hung, amount 1 Liter hung, IV SITE #1 bolus of 1000 ml established, via primary tubing, Awake and alert- acceptable, Connections checked prior to administration, Line traced prior to administration, Catheter placement confirmed via flush prior to administration, IV site without signs or symptoms of infiltration during medication administration, No swelling during administration, No drainage during administration, IV flushed after administration, Correct patient, time, route, dose and medication confirmed prior to administration, Patient advised of actions and side-effects prior to administration, Allergies confirmed and medications reviewed prior to administration, Patient in position of comfort, Side rails up, Cart in lowest position, Family at bedside, Call light in reach. : Follow Up : Response assessment performed, No signs or symptoms of allergic reaction noted, Decreased pain, Decreased symptoms, Decreased blood pressure, Decreased heart rate, Decreased respiratory rate, Decreased respiratory effort, Increased urine output, Decreased vomiting, Decreased nausea, Site inspection shows, No swelling at administration site, No drainage at administration site, No bleeding at site, No bruising noted at site, _IV SITE #1:_, IV fluid infusion discontinued, on TueDec 14, 2016 16:06, Total fluid hydration time IV site 1 1 hour, 10 minutes, ., Total amount infused: 1000, IV Line flushed after administration, Advised not to ambulate without assistance, Patient in position of comfort, Side rails up, Cart in lowest position, Family at bedside, Call light in reach. (16:06 JPAR) sodium chloride 0.9 % intravenous: Order: sodium chloride 0.9 % intravenous (0.9 % sodium chloride) - Dose: 1000 mL : IV Fluid Infusion Schedule: Now Ordered by: Bernabe Estrada MD Entered by: Steven Vasquez RN TueDec 14, 2016 16:05 , Acknowledged by: Steven Vasquez RN TueDec 14, 2016 16:06, Co-signed by: Bernabe Estrada MD TueDec 14, 2016 16:06 Documented as given by: Steven Vasquez RN TueDec 14, 2016 16:08 Patient, Medication, Dose, Route and Time verified prior to administration. IV SITE #1 IV fluids established for hydration, IV SITE #1 into left hand, IV SITE #1 2nd bag hung, amount 1 Liter hung, IV SITE #1 bolus of 1000 ml established, via primary tubing, IV SITE #1 via rapid infuser, Awake and alert- acceptable, Connections checked prior to administration, Line traced prior to administration, Catheter placement confirmed via flush prior to administration, IV site without signs or symptoms of infiltration during medication &a-1R&a+25V*p+0X*f3743G*c202B*c15G*c2P*p-0X&a-25V&a+1R Name: Nevin Box : 1970 F46 MedRec: [id number] AcctNum: [id number] Prepared: TueDec 14, 2016 19:34 by Interface Page 9 of 17 pMD [facility] administration, No swelling during administration, No drainage during administration, IV flushed after administration, Correct patient, time, route, dose and medication confirmed prior to administration, Patient advised of actions and side-effects prior to administration, Allergies confirmed and medications reviewed prior to administration, Patient in position of comfort, Side rails up, Cart in lowest position, Family at bedside, Call light in reach. Zofran intravenous: Order: Zofran intravenous (ondansetron HCl) - Dose: 4 mg : IV Push Ordered by: Bernabe Estrada MD Entered by: Bernabe Estrada MD regla Dec 14, 2016 18:00 , Acknowledged by: Steven Vasquez RN regla Dec 14, 2016 18:25 Documented as given by: Steven Vasquez RN regla Dec 14, 2016 18:29 Patient, Medication, Dose, Route and Time verified prior to administration. IV SITE #1 IVP, subsequent different medication, Slowly, Awake and alert- acceptable, Connections checked prior to administration, Line traced prior to administration, Catheter placement confirmed via flush prior to administration, IV site without signs or symptoms of infiltration during medication administration, No swelling during administration, No drainage during administration, IV flushed after administration, Correct patient, time, route, dose and medication confirmed prior to administration, Patient advised of actions and side-effects prior to administration, Allergies confirmed and medications reviewed prior to administration, Patient in position of comfort, Side rails up, Cart in lowest position, Family at bedside, Call light in reach. HPI ANXIETY (14:31 AGRE) CHIEF COMPLAINT: Patient presents for evaluation of DIZZY, CLEMENTS, THINGS CRAWLING ON HER. HISTORIAN: History provided by patient, History provided by patient's family, SEEN IN THE ED EARLIER FOR CONGESTION, COUGH, HEADACHE, SORE THROAT. IT WAS NOTED THAT HER BLOOD PRESSURE WAS ELEVATED 220/111 AND SHE WAS GIVEN HYDRALAZINE WITH IMPROVEMENT, STARTED ON MEDS FOR SINUSITIS AND DISCHARGED. SHE LEFT THE ED AND WENT TO THE PHARMACY AND WAS WAITING IN LINE AND STARTED FEELING DIZZY, HER HEADACHE RETURNED AND SHE WAS FEELING LIKE SHE CAN'T BREATH AND LIKE THINGS CRAWLING ALL OVER HER. NO HX OF PANIC ATTACKS. SAYS HER DIZZINESS IS GETTING WORST AND HER NAUSEA. NO OTHER SYMPTOMS. NO CHEST PAIN OR FEVER BUT WAS SOB WITH THIS. LOCATION: No localizing symptoms. QUALITY: Patient is alert and oriented to person, place and time, Fallentimber coma score is 15, Pain is dull in nature, described as aching, described as throbbing. SEVERITY: Maximum severity of symptoms severe, Currently symptoms are severe. TIME COURSE: Gradual onset of symptoms, Symptoms are worsening. ASSOCIATED WITH: No associated syncope, Associated with tremulousness, Denies any other complaints. EXACERBATED BY: Patient's condition exacerbated by nothing. RELIEVED BY: &a-1R&a+25V*p+0X*y6623H*c202B*c15G*c2P*p-0X&a-25V&a+1R Name: Nevin oBx : 1970 F46 MedRec: [id number] AcctNum: [id number] Prepared: TueDec 14, 2016 19:34 by Interface Page 10 of 17 pMD [facility] Patient's condition relieved by nothing. ROS (14:33 AGRE) CONSTITUTIONAL: Historian denies chills, denies fever, denies weakness. EYES: Historian denies eye redness, denies vision changes. ENT: Historian denies sore throat, denies stridor. CARDIOVASCULAR: Historian denies chest pain, denies diaphoresis. RESPIRATORY: Historian denies cough, denies shortness of breath. GI: Historian denies abdominal pain, denies nausea, denies vomiting. MUSCULOSKELETAL: Historian denies back pain, denies neck pain. SKIN: Historian denies skin changes, denies skin lesions. NEUROLOGIC: Historian denies confusion, reports dizziness, denies dysphasia, denies focal weakness, denies gait changes, reports headache, denies lethargy, denies mental status changes, denies paralysis, denies paresthesias, denies seizures, denies sensory changes, denies speech changes. HEMO/LYMPHATIC: Normal hematologic/lymphatic system review, Historian denies petechiae. PSYCHIATRIC: Historian reports anxiety, reports emotional lability. PAST MEDICAL HISTORY (14:26 JPAR) MEDICAL HISTORY: Flu vaccine not up to date, Tetanus immunization up to date, Pneumococcal vaccine not up to date, Past medical history includes pulmonary disease, asthma, Past medical history includes history of obesity, Past medical history includes pulmonary disease, pneumonia, , Past medical history includes history of hypertension, GASTRIC ULCERS, VIRAL MENINGITIS (06/09/13). FEMALE SURGICAL HISTORY: Surgical history of hernia repair, Surgical history of tubal ligation. PSYCHIATRIC HISTORY: No previous psychiatric history. SOCIAL HISTORY: Patient has no smoking history, Patient drinks socially, Patient denies drug use. PHYSICAL EXAM (14:34 AGRE) CONSTITUTIONAL: Vital signs reviewed, Patient afebrile, Pulse, tachycardic, Blood pressure, hypertensive, Respiratory rate, increased, Patient appears non toxic, Patient alert and oriented to person, place and time, NURSING NOTES REVIEWED. CRYING, WON'T OPEN HER EYES WITH EYELIDS FLUTTERING, ROCKING BACK AND FORTH, BREATHING RAPIDLY THROUGH HER MOUTH. HEAD: Head exam included findings of head atraumatic, normocephalic. EYES: Eye exam included findings of eyelids normal to inspection, Pupils equally round and reactive to light, Extraocular muscles intact, Conjunctiva normal, Sclera normal, no periorbital ecchymosis, no periorbital edema, no periorbital erythema. &a-1R&a+25V*p+0X*u4246F*c202B*c15G*c2P*p-0X&a-25V&a+1R Name: Nevin Box Inez : 1970 F46 MedRec: [id number] AcctNum: [id number] Prepared: TueDec 14, 2016 19:34 by Interface Page 11 of 17 D [facility] ENT: Ear exam normal, Nose exam normal, Mouth exam normal. NECK: Neck exam normal, Neck exam included findings of normal range of motion, no meningeal signs, no cervical adenopathy, no tenderness. RESPIRATORY CHEST: Respiratory exam included findings of no respiratory distress, Breath sounds clear, No wheezing, No rales, No rhonchi, Breath sounds not diminished, HYPERVENTILATING. CARDIOVASCULAR: Cardiovascular exam included findings of, rate tachycardic, rhythm regular, Heart sounds normal, normal S1, normal S2, no murmurs, no rub, no gallop. ABDOMEN FEMALE: Abdominal exam normal, Abdominal exam included findings of abdomen nontender, Bowel sounds normal, Liver normal, Spleen normal, no distension, no mass, no pulsatile masses. BACK: Back exam included findings of normal inspection, range of motion normal. UPPER EXTREMITY: Upper extremity exam included findings of inspection normal, Range of motion normal. LOWER EXTREMITY: Lower extremity exam included findings of inspection normal, Range of motion normal. NEURO: Neuro exam normal, Fallentimber coma scale 15, Neuro exam findings include patient oriented to person, place and time, Speech normal, Memory normal, Cranial nerves intact, no focal motor deficits, no focal sensory deficits, no cerebellar deficits, no nystagmus. SKIN: Skin exam included findings of skin warm, dry, and normal in color. PSYCHIATRIC: Psychiatric exam normal, Normal affect. LAB INTERPRETATION (15:25 AGRE) INTERPRETATION: CBC normal, Chemistry abnormal, Potassium decreased, Glucose elevated, Cardiac enzymes abnormal, Troponin elevated, Liver functions normal, Urine toxicology negative, Urine HCG negative. EVENTS TRANSFER: Triage to Emergency Triage. (TueDec 14, 2016 14:23 JPAR) Emergency Triage to Emergency Room -04. (14:23 JPAR) Removed from Emergency Emergency Room -04. (19:04 JPAR) RADIOLOGYINTERPRETATION FOOD CROPS FARM HAND: Preliminary review of CT scans by, Radiologist, IMPRESSION: No acute intracranial abnormality. (15:15 AGRE) Preliminary review of x-rays by, Radiologist, NAD. (18:28 AGRE) EKG INTERPRETATION (14:41 AGRE) 12 LEAD EKG INTERPRETATION: 12 lead EKG interpreted by Emergency Department Physician at time of study, 12 lead EKG shows normal sinus &a-1R&a+25V*p+0X*y5562J*c202B*c15G*c2P*p-0X&a-25V&a+1R Name: Nevin Box Inez : 1970 F46 MedRec: [id number] AcctNum: [id number] Prepared: TueDec 14, 2016 19:34 by Interface Page 12 of 17 pMD [facility] rhythm, Rate (beats per minute): 83, with no ectopics, Similar to old EKG, LVH, POOR R WAVE PROGRESSION V1 - 3, NON-SPECIFIC ST AND T CHANGES. EKG SIMILAR TO 07/2015 WITH MORE PRONOUNCES LVH CHANGES. O2SAT INTERPRETATION (14:36 AGRE) O2SAT: Continuous pulse oximetry, Oxygen saturation 98%, on room air, Oxygen saturation interpretation: Normal, No intervention required. DOCTOR NOTES TEXT: PATIENT DENIES CHEST PAIN OR SOB AT THIS TIME BUT REMAINS DIZZY AND NAUSEATED AND SAYS GENERALLY DOES NOT FEEL WELL. SHE WAS HYDRATED IN THE ED WITHOUT IMPROVEMENT AND MEDICATIONS GIVEN IN ED HAVE NOT HELPED. HER TROPONIN HAS REMAINED ELEVATED. I SUSPECT THAT THE ELEVATED TROPONIN IS SECONDARY TO THE HYPERTENSION SHE CONTINUES TO BE PAIN FREE. FAMILY VERY CONCERNED ABOUT HER NEEDING TO STAY IN THE HOSPITAL. DISCUSSED WITH HER FINDINGS ON EXAM AND RECOMMENDATIONS FOR ADMISSION FOR OBSERVATION AND SHE EXPRESS UNDERSTANDING AND AGREEMENT. (17:56 AGRE) CASE DISCUSSED WITH DR BURKETT WHO WILL ACCEPT PATIENT TO [facility] FOR OBSERVATION. (18:11 AGRE) HEADACHE RESOLVED WITH HYDROCODONE. (18:29 AGRE) DATA REVIEWED: Lab data reviewed, Xray data reviewed, Reviewed EKG, Old records reviewed, Discussed with family. (17:56 AGRE) PROBLEM LIST No recorded problems DIAGNOSIS (18:13 AGRE) FINAL: PRIMARY: ELEVATED TROPONIN, ADDITIONAL: Hypertension, VERTIGO. DISPOSITION PATIENT: Disposition Type: Transfer, Disposition: Transfer to [facility], Condition: Improved. (18:13 AGRE) Patient left the department. (19:04 JPAR) PRESCRIPTION No recorded prescriptions IMAGING *MEMORANDUM OF TRANSFER: Image captured from scanner. (18:19 JPAR) CONSENTS: Image captured from scanner. (18:21 JPAR) *EKG: Image captured from scanner. (18:24 JPAR) *SUPPLY CHARGE SHEET: Image captured from scanner. (19:05 JPAR) ADMIN (19:19 AGRE) DIGITAL SIGNATURE: MD Sean, Bernabe. &a-1R&a+25V*p+0X*n7071I*c202B*c15G*c2P*p-0X&a-25V&a+1R Name: Nevin Box : 1970 F46 MedRec: [id number] AcctNum: [id number] Prepared: TueDec 14, 2016 19:34 by Interface Page 13 of 17 pMD [facility] RESULTS RADIOLOGY: CT Brain WO Con Observe DT: TueDec 14, 2016 14:34, BR NONCONTRAST CT BRAIN INDICATIONS: History of headache. COMPARISON: Prior exam dated 06/10/2013. FINDINGS: No acute infarct, hemorrhage, or hydrocephalus is present. The septum pellucidum and third ventricl e are midline. The skull and extracranial soft tissues appear within normal limits. IMPRESSION: No acute intracranial abnormality. POS: [facility] . (18:29 AGRE) XR Chest 1 View Portable Observe DT: TueDec 14, 2016 15:18, CXRP PORTABLE AP CHEST X-RAY 12/14/16 HISTORY: Nausea and vomiting. COMPARISON: 07/24/15 FINDINGS: The cardiac silhouette is magnified by projection but does appear mildly enlarged. Pulmonary vascula ture is within normal limits for the portable technique of this study. The lungs are clear. Limited evaluation of the chest due to underpenetrated technique, but no gross abnormality is seen. There is suboptimal evaluation of the medial left lung base. IMPRESSION: 1. No acute cardiopulmonary process. 2. Suboptimal evaluation left lung base related to technique of the study and enlargement of th e cardiac silhouette. POS: [facility] &a-1R&a+25V*p+0X*p4572Q*c202B*c15G*c2P*p-0X&a-25V&a+1R Name: Nevin Box : 1970 F46 MedRec: [id number] AcctNum: [id number] Prepared: TueDec 14, 2016 19:34 by Interface Page 14 of 17 pMD [facility] . (18:29 AGRE) LABORATORY: Cardiac Profile w/CKMB & TropI Collection DT: TueDec 14, 2016 15:06, CKMB 4.1 ng/mL, Range (0-6.6), *Troponin I 0.036 - H ng/mL, Range (< 0.028), Reference Range , 0.00 - 0.028 ng/mL Negative 0.029 - 0.29 ng/mL , Indeterminate Greater or Equal to 0.3 ng/mL Strongly suggests [place] , . (15:40 AGRE) Comprehensive Metabolic Panel Collection DT: TueDec 14, 2016 15:06, Sodium 139 mmol/L, Range (136-145), *Potassium 3.3 - L mmol/L, Range (3.5-5.1), Chloride 105 mmol/L, Range (98-107), Carbon Dioxide 23 mmol/L, Range (22-29), Anion Gap 14 mmol/L, Range (10-20), BUN (Urea Nitrogen) 12 mg/dL, Range (7.0-18.7), Creatinine 0.81 mg/dL, Range (0.6-1.1), Estimated GFR-MDRD Greater than 90 , Reference Range for Estimated GFR: Greater than 90, mL/min/1.73 m2 NOTE: The MDRD equation has not been validated for use, with the elderly (over 70 years of age), women, patients with, serious comorbid condition or persons with extremes of body size, muscle, mass, or nutritional status. , *Glucose 109 - H mg/dL, Range (70-105), Calcium 8.8 mg/dL, Range (7.8-10.44), Bilirubin, Total 0.6 mg/dL, Range (0.2-1.2), Protein, Total 7.1 g/dL, Range (6.0-8.3), NOTE: Plasma values are generally 0.3 to 0.5 g/dL higher than serum values, due to the presence of fibrinogen. , Albumin 3.9 g/dL, Range (3.5-5.0), Globulin 3.2 g/dL, Range (2.4-3.5), Alb/Glob Ratio 1.2 g/dL, Range (1.2-2.2), Alkaline Phosphatase 80 U/L, Range (40-150), AST (SGOT) 19 U/L, Range (5-34), ALT (SGPT) 13 U/L, Range (0-55). (15:40 AGRE) CBC with Differential Collection DT: TueDec 14, 2016 15:06, White Blood Cell (WBC) Count 6.0 thou/uL, Range (4.8-10.8), Red Blood Cell (RBC) Count 4.57 mill/uL, Range (4.20-5.40), Hemoglobin 12.5 g/dL, Range (12.0-16.0), Hematocrit 39.0 %, Range (36.0-47.0), Mean Corpuscular Volume 85.3 fl, Range (81.0-99.0), Mean Corpuscular Hemoglobin 27.4 pg, Range (27.0-31.0), Mean Corpuscular HGB CONC 32.1 g/dL, Range (32.0-36.0), RBC Distribution Width 14.1 %, Range (11.5-14.5), Platelet Count 395 thou/uL, Range (130-400), &a-1R&a+25V*p+0X*y9648F*c202B*c15G*c2P*p-0X&a-25V&a+1R Name: Nevin Box : 1970 F46 MedRec: [id number] AcctNum: [id number] Prepared: TueDec 14, 2016 19:34 by Interface Page 15 of 17 pMD [facility] *Mean Platelet Volume 6.6 - L fL, Range (7.4-10.4), %Neutrophils 54.6 %, Range (42.0-75.0), %Lymphocytes 31.0 %, Range (21.0-51.0), %Monocytes 6.0 %, Range (0.0-10.0), %Eosinophils 7.5 %, Range (0.0-10.0), %Basophils 0.9 %, Range (0.0-1.0), #Neutrophils 3.3 thou/uL, Range (1.40-6.50), #Lymphocytes 1.9 thou/uL, Range (1.20-3.40), #Monocytes 0.4 thou/uL, Range (0.11-0.59), #Eosinphils 0.4 thou/uL, Range (0.0-0.7), #Basophils 0.1 thou/uL, Range (0.0-0.2). (15:40 AGRE) Drug Screen, Urine Collection DT: TueDec 14, 2016 16:25, THC/Cannabinoid Screen Not Detected , Range (NotDetected), Phencyclidine (PCP) Not Detected , Range (NotDetected), Cocaine Metabolite Screen Not Detected , Range (NotDetected), Methamphetamine Not Detected , Range (NotDetected), *Opiate Screen Detected - H , Range (NotDetected), Amphetamine Not Detected , Range (NotDetected), Benzodiazepine Screen Not Detected , Range (NotDetected), Tricyclic Screen Not Detected , Range (NotDetected), Methadone Not Detected , Range (NotDetected), Barbiturates Screen Not Detected , Range (NotDetected), Oxycodone Screen Not Detected , Range (NotDetected), Propoxyphene Screen Not Detected , Range (NotDetected), Drug Screen Cutoff , Range (), The [place] Profile-V Panel for Qualitative Drugs of Abuse assays are for, presumptive screening testing only. The drug class and detection limits, are as follows: Drug Class Detection Limit Amphetamine , 500 ng/mL* Barbiturates 200 ng/mL , Benzodiazepines 150 ng/mL* Cocaine 150 ng/mL*, Methamphetamine 500 ng/mL* Methadone 200, ng/mL* Opiates 100 ng/mL* Oxycodone , 100 ng/mL PCP 25 ng/mL Propoxyphene , 300 ng/mL Tricyclic Antidepressants 300 ng/mL Cannabinoids (THC) , 50 ng/mL Tests which yield a presumptive positive result must be , tested using a more specific alternate chemical method in order to obtain, a confirmed analytical result. Additional confirmation and identification, may be ordered on a routine basis, if desired. Presumptive positive urines, are held for two weeks. . (16:54 JPAR) &a-1R&a+25V*p+0X*r9929Y*c202B*c15G*c2P*p-0X&a-25V&a+1R Name: Nevin Box Inez : 1970 F46 MedRec: [id number] AcctNum: [id number] Prepared: TueDec 14, 2016 19:34 by Interface Page 16 of 17 D [facility] Troponin - I Collection DT: TueDec 14, 2016 17:23, *Troponin I 0.036 - H ng/mL, Range (< 0.028), Reference Range , 0.00 - 0.028 ng/mL Negative 0.029 - 0.29 ng/mL , Indeterminate Greater or Equal to 0.3 ng/mL Strongly suggests [place] , . (18:29 [facility]) Test, Urine (BHCG) Collection DT: TueDec 14, 2016 16:25, Test - Urine (BHCG) NEGATIVE , Range (NEGATIVE), Method of sensitivity- Indeterminant: results should be repeated, after 48 hours. Positive: results may be detected as early as 4-5 days before a first missed menses. Elimination of BHCG-, Elimination following first trimester D&C: 29-44 Days , Elimination following term : 8-24 Days , Specific [place] 1.013 , Range (1.002-1.036), A dilute urine specimen may, not contain telemarketing sales representative levels of hCG. If is still, suspected, a first morning urine specimen OR a random blood specimen should, be obtained from the patient 48-72 hours later and re-tested. , . (18:29 [facility]) [place]: AGRE=MD Sean, Bernabe ENRIQUE=BRIANNA Ngo [place]e EPIE=HAFSA Ibrahim, Marianna JPAR=HAFSA Vasquez, Steven &a-1R&a+25V*p+0X*y4535I*c202B*c15G*c2P*p-0X&a-25V&a+1R Name: Nevin Box : 1970 F46 MedRec: [id number] AcctNum: [id number] Prepared: TueDec 14, 2016 19:34 by Interface Page 17 of 17 pMD [facility]
== END 2016-12-14 18:56 | disposition short-term general hospital (02) ==
LOC: NAV ERS 14:17
DX: I10 Essential (primary) hypertension (principal); R42 Dizziness and giddiness; R79.89 Other specified abnormal findings of blood chemistry; J45.909 Unspecified asthma, uncomplicated; Z79.899 Other long term (current) drug therapy
CPT/HCPCS: 70450; 71010; 80053; 80306; 81025; 82553; 84484; 85025; 93005; 96361; 96372; 96374; 96375; 96376; J0360; J1885; J2060; J2405; J7050

== ENCOUNTER 2017-06-14 17:37 | Emergency (ER) | payer OTHER ==
[2017-06-14] MEDS ORDERED: Ondansetron ODT 4 MG TAB ONE (17:53)
== END 2017-06-14 19:14 | disposition home or self-care (01) ==
LOC: NAV ERS 17:37
DX: K52.9 Noninfective gastroenteritis and colitis, unspecified (principal); J45.909 Unspecified asthma, uncomplicated; E66.9 Obesity, unspecified; I11.9 Hypertensive heart disease without heart failure; Z79.899 Other long term (current) drug therapy
CPT/HCPCS: 99283; Q0162

== ENCOUNTER 2017-08-31 19:11 | Emergency (ER) | payer OTHER, SELFPAY ==
[2017-08-31] MEDS ORDERED: Ketorolac Tromethamine 60 MG/2 ML VIAL ONE (20:23)
[2017-08-31] MEDS ORDERED: Ondansetron ODT 4 MG TAB ONE (20:23)
[2017-08-31] MEDS ORDERED: cloNIDine 0.2 MG TAB ONE (20:23)
--- NOTE | 2017-08-31 21:15 | RAD ---
THREE VIEWS RIGHT FOOT 08/31/17 HISTORY: Right foot pain. AP, lateral and oblique views of the right foot is obtained. The right foot is unremarkable. No evidence of right foot fractures, subluxations or bony lesions se en. IMPRESSION: Normal four views right foot. POS: [facility]
== END 2017-08-31 21:45 | disposition home or self-care (01) ==
LOC: NAV ERS 19:11
DX: S93.601A Unspecified sprain of right foot, initial encounter (principal); I10 Essential (primary) hypertension; J45.909 Unspecified asthma, uncomplicated; E66.9 Obesity, unspecified; I11.9 Hypertensive heart disease without heart failure; Z79.899 Other long term (current) drug therapy; X58.XXXA Exposure to other specified factors, initial encounter
CPT/HCPCS: 96372; J1885; Q0162

== ENCOUNTER 2017-10-11 18:59 | Emergency (ER) | payer BC, SELFPAY ==
[2017-10-11] MEDS ORDERED: HYDROcodone/Acetaminophen 5/325 mg Tablet ONE (19:35)
[2017-10-11] MEDS ORDERED: predniSONE 20 MG TAB ONE (19:36)
--- NOTE | 2017-10-11 21:21 | RAD ---
TWO VIEWS CHEST: HISTORY: Chest pain. Right-sided back pain. COMPARISON: 07/24/2015 FINDINGS: Normal cardiac silhouette. The pulmonary vessels and hilum are normal. No mass. No consolidation. No pneumothorax or osseous abnormalities. IMPRESSION: No acute cardiopulmonary process. POS: [facility]
== END 2017-10-11 19:40 | disposition home or self-care (01) ==
LOC: NAV ERS 18:59
DX: S29.012A Strain of muscle and tendon of back wall of thorax, initial encounter (principal); J45.909 Unspecified asthma, uncomplicated; E66.9 Obesity, unspecified; I10 Essential (primary) hypertension; Z79.899 Other long term (current) drug therapy; X58.XXXA Exposure to other specified factors, initial encounter
CPT/HCPCS: 71020; 93005; J7506

== ENCOUNTER 2017-11-22 15:57 | Emergency (ER) | payer BC ==
[2017-11-22] MEDS ORDERED: Benzonatate 100 MG CAP ONE (16:21)
[2017-11-22] MEDS ORDERED: cloNIDine 0.1 MG TAB ONE (17:05)
== END 2017-11-22 17:29 | disposition home or self-care (01) ==
LOC: NAV ERS 15:57
DX: J06.9 Acute upper respiratory infection, unspecified (principal); J45.909 Unspecified asthma, uncomplicated; E66.9 Obesity, unspecified; I10 Essential (primary) hypertension; I42.9 Cardiomyopathy, unspecified; Z87.01 Personal history of pneumonia (recurrent); Z79.899 Other long term (current) drug therapy
CPT/HCPCS: 99283

== ENCOUNTER 2017-12-23 20:53 | Emergency (ER) | payer BC, OTHER ==
[2017-12-23] MEDS ORDERED: Ketorolac Tromethamine 30 MG/ML VIAL ONE (21:14)
[2017-12-23] MEDS ORDERED: Ondansetron ODT 4 MG TAB ONE (21:14)
--- NOTE | 2017-12-23 21:26 | RAD ---
LEFT SHOULDER THREE VIEWS 12/23/17 INDICATION: Pain, new onset. 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 No fracture or dislocation of the left shoulde r identified. There is corticated appearing heterotopic density adjacent to greater tuberosity of the proximal keaton anahi. IMPRESSION: No acute fracture or dislocation identified of the left shoulder. POS: [facility]
== END 2017-12-23 22:05 | disposition home or self-care (01) ==
LOC: NAV ERS 20:53
DX: M19.012 Primary osteoarthritis, left shoulder (principal); I10 Essential (primary) hypertension; J45.909 Unspecified asthma, uncomplicated; Z79.899 Other long term (current) drug therapy
CPT/HCPCS: 96372; J1885; Q0162

== ENCOUNTER 2019-01-20 20:14 | Emergency (ER) | payer BC ==
[2019-01-20] MEDS ORDERED: Metoclopramide HCl 10 MG/2 ML VIAL ONE (20:50)
[2019-01-20] MEDS ORDERED: Sodium Chloride 0.9% 1,000 ML ONE (20:50)
[2019-01-20] MEDS ORDERED: diphenhydrAMINE 50 MG/ML VIAL ONE (20:50)
[2019-01-20 21:03] LABS: Band 2 % (5-11); Eosinophils 2 % (0-10); Hemoglobin 12.3 g/dL (12.0-16.0); Lymphocytes 20 % (21-51); MDiff Complete? YES; Mean Corpuscular HGB CONC 31.2 g/dL (32.0-36.0); Mean Corpuscular Hemoglobin 26.9 pg (27.0-31.0); Mean Corpuscular Volume 86.2 fL (78.0-98.0); Mean Platelet Volume 6.7 fL (7.4-10.4); Monocytes 8 % (0-10); Neutrophil 68 % (42-75); Platelet Count 351 thou/uL (130-400); Platelet Morphology Comment Appears Adequate; RBC Distribution Width 14.6 % (11.5-14.5); RBC Morphology Normal; Red Blood Cell (RBC) Count 4.56 mill/uL (4.20-5.40); White Blood Cell (WBC) Count 7.5 thou/uL (4.8-10.8)
[2019-01-20 21:12] LABS: ALT (SGPT) 13 U/L (8-55); AST (SGOT) 18 U/L (5-34); Albumin 3.8 g/dL (3.5-5.0); Alkaline Phosphatase 72 U/L (40-150); Anion Gap 13 mmol/L (10-20); BUN (Urea Nitrogen) 27 mg/dL (7.0-18.7); Bilirubin, Total 0.5 mg/dL (0.2-1.2); Calc. Creatinine Clearance 0 mL/min (70-130); Calcium 9.3 mg/dL (7.8-10.44); Carbon Dioxide 24 mmol/L (22-29); Chloride 105 mmol/L (98-107); Estimated GFR-MDRD 50; Globulin 3.3 g/dL (2.4-3.5); Glucose 93 mg/dL (70-105); Lipase 133 U/L (8-78); Potassium 3.4 mmol/L (3.5-5.1); Protein, Total 7.1 g/dL (6.0-8.3); Sodium 139 mmol/L (136-145)
[2019-01-20 21:45] LABS: Bilirubin Negative (Negative); Blood, Urine Trace (Negative); Clarity Clear (Clear); Glucose, Urine (Dipstick) Negative (Negative); Leukocyte Negative (Negative); Nitrite Negative (Negative); Protein, Urine (Dipstick) 30 mg/dL (Neg-Trace); Specific Gravity, Urine 1.025 (1.005-1.030); Urobilinogen 0.2 mg/dL (0.2-1.0)
[2019-01-20 21:46] LABS: Bacteria/HPF None Seen HPF (None Seen); Pregnancy Test - Urine (BHCG) Negative (Negative); Pregu Control Background? CLEAR/WHITE (CLR/WHITE); Pregu Control Bar Appear? YES (CONTROL BAR); RBC/HPF 0-3 HPF (0-3); Specific Gravity 1.025 (1.002-1.036); WBC/HPF None Seen HPF (0-3)
== END 2019-01-20 22:20 | disposition home or self-care (01) ==
LOC: NAV ERS 20:14
DX: R51 Headache (principal); J45.909 Unspecified asthma, uncomplicated; E66.9 Obesity, unspecified; I10 Essential (primary) hypertension; Z79.899 Other long term (current) drug therapy
CPT/HCPCS: 36415; 80053; 81003; 81015; 81025; 83690; 85025; 96365; 96375; J1200; J2765; J7050

== ENCOUNTER 2019-02-06 13:39 | Emergency (ER) | payer BC ==
[2019-02-06] MEDS ORDERED: cloNIDine 0.2 MG TAB ONE (14:09)
[2019-02-06] MEDS ORDERED: cefTRIAXone\\ROCEPHIN 1 GM VIAL ONE (14:38)
[2019-02-06] MEDS ORDERED: Lidocaine 1% (PF) 30 ML VIAL ONE (14:38)
--- NOTE | 2019-02-06 15:35 | RAD ---
PA AND LATERAL CHEST: History: Cough, congestion, difficulty breathing. FINDINGS: Comparison is made with exam of 17. Heart size is stable. Lungs are expanded without focal areas of consolidation, pneumothorax, halle pu lmonary edema or pleural effusions. IMPRESSION: No acute process. POS: [facility]
== END 2019-02-06 15:23 | disposition home or self-care (01) ==
LOC: NAV ERS 13:39
DX: J20.9 Acute bronchitis, unspecified (principal); J32.9 Chronic sinusitis, unspecified; E66.9 Obesity, unspecified; I10 Essential (primary) hypertension; J45.909 Unspecified asthma, uncomplicated; Z79.899 Other long term (current) drug therapy
CPT/HCPCS: 71046; 96372; J0696; J2001

== ENCOUNTER 2019-04-11 16:23 | Emergency (ER) | payer BC ==
[2019-04-11] MEDS ORDERED: Morphine 4 MG/ML VIAL ONE (17:17)
[2019-04-11] MEDS ORDERED: Ketorolac Tromethamine 60 MG/2 ML VIAL ONE (17:17)
--- NOTE | 2019-04-11 17:18 | RAD ---
2 views chest. HISTORY: Pain cough. PA and lateral views the chest obtained. Mild cardiomegaly seen. The lungs are well aerated. No evidence of active intrathoracic seen. No evid ence of effusions, pneumonia or pneumothorax seen. IMPRESSION: Mild cardiomegaly.
[2019-04-11 18:07] LABS: Bilirubin Negative (Negative); Blood, Urine Moderate (Negative); Clarity Clear (Clear); Glucose, Urine (Dipstick) Negative (Negative); Leukocyte Negative (Negative); Nitrite Negative (Negative); Protein, Urine (Dipstick) 30 mg/dL (Neg-Trace); Specific Gravity, Urine 1.025 (1.005-1.030); Urobilinogen 0.2 mg/dL (0.2-1.0)
[2019-04-11 18:13] LABS: Bacteria/HPF None Seen HPF (None Seen); RBC/HPF 0-3 HPF (0-3); WBC/HPF None Seen HPF (0-3)
--- NOTE | 2019-04-11 19:01 | CT ---
CT Stone Protocol 04/11/2019 6:25 PM HISTORY: Right flank pain and hematuria. COMPARISON: None. Technique: Multiple contiguous axial CT images are obtained through the abdomen and pelvis without IV contrast. Coronal reformats are provided. FINDINGS: This examination is limited for the evaluation of solid organs and vascular structures due to the lac k of intravenous contrast. In addition, there is artifact secondary to patient's body wall closely adjacent to the gantry of the CT scanner. Lower Chest: Minimal atelectasis is seen in the region of the lingula. Calcified left hilar lymph nod e is identified. Abdomen: Liver: within normal limits. Gallbladder: Within normal limits for CT imaging. Pancreas: within normal limits. Spleen: within normal limits. Adrenals: within normal limits. Kidneys: A punctate nonobstructing calculus is seen in the lower pole left kidney. No additional holley l calculi are seen bilaterally, and there is no hydronephrosis. Ureters: No ureteral calculus is seen.. Pelvis: Urinary bladder: Mostly decompressed and not well evaluated. Reproductive Organs: Uterus is prominent in size. A curvilinear calcification is seen in the left ant erolateral aspect of the body of the uterus which could be related to peripheral calcification involving a uterine fibroid. This is difficult to further assess on this exam. Lymph Nodes: No enlarged lymph nodes. Bowel: Normal caliber. Appendix: The appendix is normal in caliber. Peritoneum: No free fluid, free air, or fluid collection. Retroperitoneum: within normal limits. Vessels: Abdominal aorta is normal in caliber.. Abdominal Wall: Within normal limits where visualized. Bones: Degenerative changes are seen in the visualized thoracic spine as well as involving the lower lumbar spine. IMPRESSION: 1. Punctate nonobstructing left renal calculus. No right renal calculus or ureteral calculi are seen bilaterally. 2. Curvilinear calcification in the lateral aspect of a prominent uterus which could be related to a partially calcified uterine fibroid.
== END 2019-04-11 19:50 | disposition home or self-care (01) ==
LOC: NAV ERS 16:23
DX: M54.6 Pain in thoracic spine (principal); R10.9 Unspecified abdominal pain; R31.9 Hematuria, unspecified; I10 Essential (primary) hypertension; D25.9 Leiomyoma of uterus, unspecified; E66.9 Obesity, unspecified; Z79.899 Other long term (current) drug therapy
CPT/HCPCS: 71046; 74176; 81003; 81015; 96372; J1885; J2270

== ENCOUNTER 2019-06-04 18:25 | Emergency (ER) | payer BC ==
[2019-06-04] MEDS ORDERED: Ondansetron PF 4 MG/2 ML Vial ONE (18:51)
[2019-06-04 19:11] LABS: BHCG - Serum Negative (NEGATIVE); Pregs Control Bar Appear? YES (CONTROL BAR)
[2019-06-04 19:12] LABS: ALT (SGPT) 10 U/L (8-55); AST (SGOT) 17 U/L (5-34); Albumin 3.7 g/dL (3.5-5.0); Alkaline Phosphatase 67 U/L (40-150); Anion Gap 13 mmol/L (10-20); BUN (Urea Nitrogen) 22 mg/dL (7.0-18.7); Bilirubin, Total 0.4 mg/dL (0.2-1.2); Calc. Creatinine Clearance 0 mL/min (70-130); Calcium 9.1 mg/dL (7.8-10.44); Carbon Dioxide 24 mmol/L (22-29); Chloride 108 mmol/L (98-107); Estimated GFR-MDRD 61; Globulin 3.2 g/dL (2.4-3.5); Glucose 92 mg/dL (70-105); Potassium 3.9 mmol/L (3.5-5.1); Protein, Total 6.9 g/dL (6.0-8.3); Sodium 141 mmol/L (136-145)
[2019-06-04] MEDS ORDERED: hydrALAZINE 10 MG TAB ONE (19:12)
[2019-06-04] MEDS ORDERED: Hydrochlorothiazide 25 MG TAB ONE (19:12)
[2019-06-04 19:27] LABS: #Basophils 0.1 thou/uL (0.0-0.2); #Eosinphils 0.2 thou/uL (0.0-0.7); #Monocytes 0.4 thou/uL (0.11-0.59); #Neutrophils 3.1 thou/uL (1.40-6.50); %Basophils 1.1 % (0.0-1.0); %Eosinophils 2.9 % (0.0-10.0); %Lymphocytes 34.2 % (21.0-51.0); %Monocytes 7.6 % (0.0-10.0); %Neutrophils 54.2 % (42.0-75.0); Hemoglobin 11.6 g/dL (12.0-16.0); Mean Corpuscular HGB CONC 31.9 g/dL (32.0-36.0); Mean Corpuscular Hemoglobin 27.1 pg (27.0-31.0); Mean Corpuscular Volume 85.1 fL (78.0-98.0); Mean Platelet Volume 6.9 fL (7.4-10.4); Platelet Count 329 thou/uL (130-400); RBC Distribution Width 14.2 % (11.5-14.5); Red Blood Cell (RBC) Count 4.29 mill/uL (4.20-5.40); White Blood Cell (WBC) Count 5.7 thou/uL (4.8-10.8)
[2019-06-04 20:23] LABS: Bilirubin Negative (Negative); Blood, Urine Trace (Negative); Clarity Clear (Clear); Glucose, Urine (Dipstick) Negative (Negative); Leukocyte Negative (Negative); Nitrite Negative (Negative); Protein, Urine (Dipstick) Negative (Neg-Trace)
--- NOTE | 2019-06-04 20:24 | CT ---
CT HEAD WITHOUT CONTRAST: HISTORY: Nausea and vomiting since this morning. Headache with dizziness and blurry vision. COMPARISON: 12/14/2016 FINDINGS: There is no evidence of a hemorrhage, acute infarction, mass effect, or midline shift. The ventricul ar system is normal in size, shape, and position. There has been no interval change when compared to the prior exam. IMPRESSION: No acute intracranial abnormalities demonstrated. POS: [facility]
[2019-06-04 20:33] LABS: Bacteria/HPF None Seen HPF (None Seen); RBC/HPF 0-3 HPF (0-3); Squamous Epithelial 0-3 HPF (0-3); WBC/HPF None Seen HPF (0-3)
[2019-06-04] MEDS ORDERED: Gentamicin Ophth Soln 0.3% 5 ml Bottle ONE (20:41)
[2019-06-04] MEDS ORDERED: Ondansetron ODT 4 MG TAB ONE (20:46)
== END 2019-06-04 21:15 | disposition home or self-care (01) ==
LOC: NAV ERS 18:25
DX: R11.2 Nausea with vomiting, unspecified (principal); R19.7 Diarrhea, unspecified; I10 Essential (primary) hypertension; H10.9 Unspecified conjunctivitis; R51 Headache; J45.909 Unspecified asthma, uncomplicated; E66.9 Obesity, unspecified; Z79.899 Other long term (current) drug therapy
CPT/HCPCS: 70450; 80053; 81003; 81015; 83690; 84484; 84703; 85025; 93005; 96374; J2405; Q0162

== ENCOUNTER 2019-08-30 16:15 | Emergency (ER) | payer BC ==
[2019-08-30] MEDS ORDERED: Albuterol Sulfate 2.5 mg/0.5 ml Neb ONE (16:51)
--- NOTE | 2019-08-30 17:08 | RAD ---
TWO VIEW CHEST: 08/30/19 HISTORY: Fever. COMPARISON: 04/11/19. The lung saavedra appear clear. No infiltrate. Heart and mediastinum unremarkable. IMPRESSION: No evidence of acute lung process. POS: [facility]
[2019-08-30] MEDS ORDERED: Acetaminophen 500 MG TAB ONE (17:09)
[2019-08-30] MEDS ORDERED: Azithromycin 250 MG TAB ONE (17:09)
[2019-08-30] MEDS ORDERED: Ondansetron ODT 4 MG TAB ONE (17:10)
== END 2019-08-30 17:48 | disposition home or self-care (01) ==
LOC: NAV ERS 16:15
DX: J45.909 Unspecified asthma, uncomplicated (principal); I10 Essential (primary) hypertension; E66.9 Obesity, unspecified; Z79.899 Other long term (current) drug therapy
CPT/HCPCS: 71046; 87804; 94640; J7611; J7620; Q0162

== ENCOUNTER 2019-10-05 03:41 | Emergency (ER) | payer BC, SELFPAY ==
[2019-10-05] MEDS ORDERED: hydrALAZINE 10 MG TAB ONE (04:37)
[2019-10-05] MEDS ORDERED: predniSONE 20 MG TAB ONE (04:37)
== END 2019-10-05 05:05 | disposition home or self-care (01) ==
LOC: NAV ERS 03:41
DX: J45.901 Unspecified asthma with (acute) exacerbation (principal); I10 Essential (primary) hypertension; I42.9 Cardiomyopathy, unspecified; Z79.51 Long term (current) use of inhaled steroids; Z79.899 Other long term (current) drug therapy
CPT/HCPCS: 93005; 94640; 94760; J7512; J7620

== ENCOUNTER 2020-01-14 18:05 | Emergency (ER) | payer SELFPAY ==
[2020-01-14] MEDS ORDERED: Acetaminophen 500 MG TAB ONE (18:55)
[2020-01-14] MEDS ORDERED: Benzonatate 100 MG CAP ONE (19:17)
== END 2020-01-14 19:48 | disposition home or self-care (01) ==
LOC: NAV ERS 18:05
DX: J10.1 Influenza due to other identified influenza virus with other respiratory manifestations (principal); J45.909 Unspecified asthma, uncomplicated; I42.9 Cardiomyopathy, unspecified; E66.9 Obesity, unspecified; I10 Essential (primary) hypertension; Z87.01 Personal history of pneumonia (recurrent); Z79.51 Long term (current) use of inhaled steroids; Z79.899 Other long term (current) drug therapy
CPT/HCPCS: 87804; 99283

== ENCOUNTER 2020-11-13 06:48 | Emergency (ER) | payer SELFPAY ==
[2020-11-13] MEDS ORDERED: Ipratropium Bromide 2.5 ml Neb ONE (07:30)
[2020-11-13] MEDS ORDERED: Albuterol Sulfate 2.5 mg/0.5 ml Neb ONE ×2 (07:30→07:31)
[2020-11-13] MEDS ORDERED: Benzonatate 100 MG CAP ONE ×2 (07:32→12:16)
[2020-11-13 07:39] LABS: #Basophils 0.1 thou/uL (0.0-0.2); #Eosinphils 0.3 thou/uL (0.0-0.7); #Lymphocytes 1.4 thou/uL (1.20-3.40); #Monocytes 0.4 thou/uL (0.11-0.59); %Basophils 0.9 % (0.0-1.0); %Lymphocytes 19.2 % (21.0-51.0); %Monocytes 5.7 % (0.0-10.0); %Neutrophils 70.2 % (42.0-75.0); Hemoglobin 11.4 g/dL (12.0-16.0); Mean Corpuscular HGB CONC 30.9 g/dL (32.0-36.0); Mean Corpuscular Hemoglobin 26.5 pg (27.0-31.0); Mean Corpuscular Volume 85.7 fL (78.0-98.0); Mean Platelet Volume 7.4 fL (7.4-10.4); Platelet Count 351 thou/uL (130-400); RBC Distribution Width 14.8 % (11.5-14.5); Red Blood Cell (RBC) Count 4.31 mill/uL (4.20-5.40); White Blood Cell (WBC) Count 7.1 thou/uL (4.8-10.8)
[2020-11-13 07:53] LABS: ALT (SGPT) 12 U/L (8-55); AST (SGOT) 18 U/L (5-34); Albumin 3.6 g/dL (3.5-5.0); Alkaline Phosphatase 79 U/L (40-110); Anion Gap 14 mmol/L (10-20); BUN (Urea Nitrogen) 16 mg/dL (7.0-18.7); Bilirubin, Total 0.5 mg/dL (0.2-1.2); Calc. Creatinine Clearance 0 mL/min (70-130); Calcium 8.3 mg/dL (7.8-10.44); Carbon Dioxide 23 mmol/L (22-29); Chloride 105 mmol/L (98-107); Globulin 3.1 g/dL (2.4-3.5); Glucose 113 mg/dL (70-105); Potassium 3.6 mmol/L (3.5-5.1); Protein, Total 6.7 g/dL (6.0-8.3); Sodium 138 mmol/L (136-145)
--- NOTE | 2020-11-13 08:09 | RAD ---
Chest one view HISTORY: Cough. Dyspnea. COMPARISON: 08/30/2019. FINDINGS: Cardiac silhouette is magnified and enlarged. Pulmonary vasculature slightly engorged with widespread reticulonodular interstitial prominence. Mediastinum is midline. No evidence of pneumothorax. Calcific tendinosis left shoulder. IMPRESSION : Cardiomegaly with pulmonary vascular congestion. Correlate for mild CHF.
[2020-11-13 08:13] LABS: CKMB 3.9 ng/mL (0-6.6)
[2020-11-13] MEDS ORDERED: Aspirin Chewable 81 MG TAB ONE (08:25)
[2020-11-13] MEDS ORDERED: Furosemide 40 MG/4 ML VIAL ONE (08:25)
[2020-11-13] MEDS ORDERED: Nitroglycerin 2% Ointment 1 INCH/1 GM Packet ONE (08:25)
[2020-11-13] MEDS ORDERED: Sacubitril 49 MG/Valsartan 51 MG TABLET PO SCH (10:00)
[2020-11-13] MEDS ORDERED: hydrALAZINE 20 MG/ML VIAL ONE (11:30)
[2020-11-13] MEDS ORDERED: hydrALAZINE 10 MG TAB ONE ×2 (11:30→11:31)
[2020-11-13 11:47] LABS: CKMB 4.1 ng/mL (0-6.6)
[2020-11-14 02:23] LABS: SARS-CoV-2 MS2 Positive; SARS-CoV-2 N Gene Negative; SARS-CoV-2 S Gene Negative; SARS-CoV-2 by NAA Not Detected (NotDetected); SARS-CoV-2 orf1ab Negative
== END 2020-11-13 15:00 | disposition home or self-care (01) ==
LOC: NAV ERS 06:48
DX: I11.0 Hypertensive heart disease with heart failure (principal); I50.9 Heart failure, unspecified; I21.4 Non-ST elevation (NSTEMI) myocardial infarction; J45.909 Unspecified asthma, uncomplicated; E66.9 Obesity, unspecified; Z79.51 Long term (current) use of inhaled steroids; Z79.899 Other long term (current) drug therapy
CPT/HCPCS: 36415; 71045; 80053; 82553; 83880; 84484; 85025; 87635; 93005; 94760; 96374; J0360; J1940; J7611; U0003

== ENCOUNTER 2020-12-24 13:36 | Emergency (ER) | payer SELFPAY ==
[2020-12-25 20:44] LABS: SARS-CoV-2 PCR by NAA Not Detected (NotDetected)
== END 2020-12-24 15:20 | disposition home or self-care (01) ==
LOC: NAV ERS 13:36
DX: J01.90 Acute sinusitis, unspecified (principal); J02.9 Acute pharyngitis, unspecified; Z20.822 Contact with and (suspected) exposure to COVID-19; J45.909 Unspecified asthma, uncomplicated; E66.9 Obesity, unspecified; Z79.51 Long term (current) use of inhaled steroids; Z79.899 Other long term (current) drug therapy
CPT/HCPCS: 87081; 87430; 87635; 99283; U0003; U0005

== ENCOUNTER 2021-01-13 07:02 | Emergency (ER) | payer SELFPAY ==
[2021-01-13] MEDS ORDERED: Furosemide 40 MG/4 ML VIAL ONE (08:03)
[2021-01-13] MEDS ORDERED: Morphine 4 MG/ML VIAL ONE (08:03)
[2021-01-13 08:22] LABS: #Basophils 0.1 thou/uL (0.0-0.2); #Eosinphils 0.5 thou/uL (0.0-0.7); #Lymphocytes 1.3 thou/uL (1.20-3.40); #Monocytes 0.3 thou/uL (0.11-0.59); #Neutrophils 2.3 thou/uL (1.40-6.50); %Basophils 1.4 % (0.0-1.0); %Eosinophils 10.5 % (0.0-10.0); %Monocytes 6.2 % (0.0-10.0); %Neutrophils 52.8 % (42.0-75.0); Mean Corpuscular HGB CONC 32.3 g/dL (32.0-36.0); Mean Corpuscular Hemoglobin 27.2 pg (27.0-31.0); Mean Corpuscular Volume 84.4 fL (78.0-98.0); Mean Platelet Volume 6.9 fL (7.4-10.4); Platelet Count 344 thou/uL (130-400); RBC Distribution Width 15.2 % (11.5-14.5); Red Blood Cell (RBC) Count 4.78 mill/uL (4.20-5.40); White Blood Cell (WBC) Count 4.4 thou/uL (4.8-10.8)
[2021-01-13 08:23] LABS: %Lymphocytes 29.2 % (21.0-51.0)
[2021-01-13 08:34] LABS: ALT (SGPT) 13 U/L (8-55); AST (SGOT) 21 U/L (5-34); Albumin 3.7 g/dL (3.5-5.0); Alkaline Phosphatase 80 U/L (40-110); Anion Gap 13 mmol/L (10-20); BUN (Urea Nitrogen) 15 mg/dL (7.0-18.7); Bilirubin, Total 0.6 mg/dL (0.2-1.2); Calc. Creatinine Clearance 0 mL/min (70-130); Calcium 8.7 mg/dL (7.8-10.44); Carbon Dioxide 26 mmol/L (22-29); Chloride 101 mmol/L (98-107); Globulin 3.5 g/dL (2.4-3.5); Glucose 115 mg/dL (70-105); Potassium 3.3 mmol/L (3.5-5.1); Protein, Total 7.2 g/dL (6.0-8.3); Sodium 137 mmol/L (136-145)
[2021-01-13] MEDS ORDERED: Aspirin Chewable 81 MG TAB ONE (08:51)
[2021-01-13 08:52] LABS: Base Excess-Venous 2.1 mmol/L (-2.0 to 3.0); Bicarbonate (HCO3v) 28.3 mmol/L (22.0-28.0); CKMB 3.8 ng/mL (0-6.6); CO2 Tension (PvCO2) 49.2 mmHg (42.0-51.0)
[2021-01-13] MEDS ORDERED: Enoxaparin Sodium 120 MG/0.8 ML SYRINGE SC ONE (08:52)
[2021-01-13] MEDS ORDERED: Enoxaparin Sodium 30 MG/0.3 ML SYRINGE ONE (08:52)
[2021-01-13 08:53] LABS: Calcium, Ionized 1.11 mmol/L (1.15-1.33); Chloride 101 mmol/L (98-107); Hemoglobin - Calc 14.2 g/dL (12.0-16.0); Potassium 3.4 mmol/L (3.5-5.1); Sodium 140 mmol/L (138-145); T. Carbon Dioxide 29.8 mmol/L (22.0-28.0)
[2021-01-13 08:54] LABS: vO2 Saturation-calc 93.6 % (60.0-85.0)
[2021-01-13] MEDS ORDERED: Potassium Chloride 20 MEQ TAB ONE (09:27)
[2021-01-13 09:45] LABS: Bilirubin Negative (Negative); Blood, Urine Large (Negative); Clarity Turbid (Clear); Glucose, Urine (Dipstick) Negative (Negative); Ketone, Urine Negative (Negative); Leukocyte Negative (Negative); Nitrite Negative (Negative); Protein, Urine (Dipstick) 100 mg/dL (Neg-Trace); Urobilinogen 0.2 mg/dL (Less than 2); pH, Urine 6.5 (5.0-9.0)
[2021-01-13 09:51] LABS: Bacteria/HPF Rare-Few HPF (None Seen); RBC/HPF Greater than 50 HPF (0-3); Squamous Epithelial 0-3 HPF (0-3); WBC/HPF 0-3 HPF (0-3)
[2021-01-13 14:30] LABS: SARS-CoV-2 PCR by NAA Not Detected (NotDetected)
== END 2021-01-13 10:00 | disposition short-term general hospital (02) ==
LOC: NAV ERS 07:02
DX: I42.9 Cardiomyopathy, unspecified (principal); E87.6 Hypokalemia; R09.02 Hypoxemia; R05 Cough; I51.7 Cardiomegaly; J45.909 Unspecified asthma, uncomplicated; E66.9 Obesity, unspecified; I10 Essential (primary) hypertension; Z79.899 Other long term (current) drug therapy
CPT/HCPCS: 71045; 80053; 81003; 81015; 82330; 82553; 82803; 83880; 84484; 85014; 85025; 87635; 93005; 94760; 96372; 96374; 96375; J1650; J1940; J2270; U0003; U0005

== ENCOUNTER 2021-03-10 12:44 | Emergency (ER) | payer SELFPAY ==
[2021-03-11 01:16] LABS: SARS-CoV-2 PCR by NAA Not Detected (NotDetected)
== END 2021-03-10 13:48 | disposition home or self-care (01) ==
LOC: NAV ERS 12:44
DX: J02.9 Acute pharyngitis, unspecified (principal); Z20.822 Contact with and (suspected) exposure to COVID-19; I10 Essential (primary) hypertension; Z79.899 Other long term (current) drug therapy
CPT/HCPCS: 87081; 87430; 87635; 99283; U0003; U0005

== ENCOUNTER 2022-04-04 19:36 | Emergency (ER) | payer MEDICARE, OTHER | END 2022-04-04 20:25 | disposition home or self-care (01) | LOC: NAV ERS 19:36 | DX: K13.70 Unspecified lesions of oral mucosa (principal); J45.909 Unspecified asthma, uncomplicated; E66.9 Obesity, unspecified; Z79.899 Other long term (current) drug therapy | CPT/HCPCS: 99283 ==

== ENCOUNTER 2023-01-21 00:43 | Emergency (ER) | payer MEDICARE, OTHER ==
[2023-01-21] MEDS ORDERED: Famotidine 20 MG TAB ONE (01:20)
[2023-01-21] MEDS ORDERED: predniSONE 20 MG TAB ONE (01:20)
== END 2023-01-21 01:48 | disposition home or self-care (01) ==
LOC: NAV ERS 00:43
DX: L25.9 Unspecified contact dermatitis, unspecified cause (principal); I10 Essential (primary) hypertension
CPT/HCPCS: 99282; J7512